=== PATIENT | female | born 1970 | race African-American/Black ===

== ENCOUNTER 2017-03-04 06:50 | Emergency (ER) | payer OTHER ==
[2017-03-04 07:14] VITALS: BMI 26.4
[2017-03-04] MEDS ORDERED: SODIUM CHLORIDE 1,000 ML IV ONE (07:59)
[2017-03-04] MEDS ORDERED: morphine CARPU-JECT 4 MG/1 ML DISP.SYRIN IVPUSH ONE (07:59)
[2017-03-04] MEDS ORDERED: ONDANSETRON 4 MG/2 ML VIAL IVPB ONE (07:59)
[2017-03-04] MEDS ORDERED: morphine CARPU-JECT 4 MG/1 ML DISP.SYRIN ONE (08:07)
[2017-03-04] MEDS ORDERED: ONDANSETRON 4 MG/2 ML VIAL ONE (08:08)
--- NOTE | 2017-03-04 08:09 | PDOC ---
History of Present Illness - General History Source: Patient Exam Limitations: No Limitations - History of Present Illness Initial Comments: 03/04/17 08:09 The patient is a 46-year-old woman, with a significant past medical history of gastroesophageal reflux disease who presents to the emergency department via walk-in for further evaluation of abdominal pain since 01:30 AM this morning. No fall, trauma, strenuous activity. Her last meal was at approximately 20:30 last night. She reports experiencing sharp right upper quadrant pain that woke her up from her sleep. She states that her pain has been constant since onset and within the past few hours, she notes that her pain has wrapped around her right flank. She states that her pain is exacerbated when taking deep breathes. She reports associated symptoms of nausea and vomiting (x1; non-bloody). She does not provide any alleviating factors. She also notes that she has experienced urinary frequency over the past day with dark appearing urine. No dysuria. No fever, chills, cough, shortness of breath, chest pain, headaches, leg pain/swelling. Allergies: None Known Past Surgical History: Caesarian Sections Social History: Occasional tobacco smoker. Occasional ETOH use. No recreational drug use. Primary Care Physician: N/A recently moved from [place], [place] (in transition of finding a new PCP). <Lulu Sam - Last Filed: 03/04/17 11:54> <Eligio Meredith - Last Filed: 03/04/17 12:35> - General Chief Complaint: Pain Stated Complaint: DIFFICULTY BREATHING, ABD PAIN Time Seen by Provider: 03/04/17 07:41 Past History <Lulu Sam - Last Filed: 03/04/17 11:54> - Psycho/Social/Smoking Cessation Hx Suicidal Ideation: No Smoking History: Never smoked Information on smoking cessation initiated: No <Eligio Meredith - Last Filed: 03/04/17 12:35> - Past Medical History Allergies/Adverse Reactions: Allergies Allergy/AdvReac Type Severity Reaction Status Date / Time No Known Allergies Allergy Verified 03/04/17 07:14 Home Medications: Ambulatory Orders Sulfamethoxazole/Trimethoprim [Bactrim Ds -] 1 tab PO BID #14 tablet 03/04/17 Review of Systems - Review of Systems Constitutional: No: Chills, Fever Respiratory: No: Cough, Shortness of Breath ABD/GI: Yes: Nausea, Vomiting. No: Constipated, Diarrhea : Yes: Frequency. No: Dysuria, Hematuria All Other Systems: Reviewed and Negative <Eligio Meredith - Last Filed: 03/04/17 12:35> *Physical Exam - Vital Signs Last Vital Signs Temp Pulse Resp BP Pulse Ox 98.3 F 94 H 18 140/85 98 03/04/17 07:11 03/04/17 07:11 03/04/17 07:11 03/04/17 07:11 03/04/17 07:38 - Physical Exam Comments: 03/04/17 08:10 GENERAL: The patient is awake, alert, and fully oriented, in no acute distress. HEAD: Normal with no signs of trauma. EYES: Pupils equal, round and reactive to light, extraocular movements intact, sclera anicteric, conjunctiva clear with no pallor. ENT: Ears normal, nares patent, oropharynx clear without exudates. Moist mucous membranes. NECK: Normal range of motion, supple without lymphadenopathy, JVD, or masses. LUNGS: Breath sounds equal, clear to auscultation bilaterally. No wheeze/ crackles. HEART: Regular rate and rhythm, normal S1 and S2 without murmur or rub. ABDOMEN: Soft. There is some right upper quadrant tenderness to palpation with guarding. +[place] sign. +Right CVA tenderness. Nondistended. BS wnl. No rebound. No palpable masses. No hepatosplenomegaly. EXTREMITIES: Normal range of motion, no edema. No clubbing or cyanosis. No cords, erythema, or tenderness. NEUROLOGICAL: Cranial nerves II through XII grossly intact. Normal speech. PSYCH: Normal mood, normal affect. SKIN: Warm, Dry, normal turgor, no rashes or lesions noted. <Lulu Sam - Last Filed: 03/04/17 11:54> - Vital Signs Last Vital Signs Temp Pulse Resp BP Pulse Ox 98.3 F 94 H 18 140/85 98 03/04/17 07:11 03/04/17 07:11 03/04/17 07:11 03/04/17 07:11 03/04/17 07:38 <Eligio Meredith - Last Filed: 03/04/17 12:35> Heart Score/ECG Review #1 ECG reviewed & interpreted by me at: 08:19 General ECG Interpretation: Sinus Rhythm, Normal Rate (72), Normal Intervals ( qtc 473), No acute ischemic changes (T wave flattening V3-V5, no ST changes) <Eligio Meredith - Last Filed: 03/04/17 12:35> ED Treatment Course - LABORATORY CBC & Chemistry Diagram: 03/04/17 07:59 03/04/17 07:59 - RADIOLOGY Radiograph Interpretation: 03/04/17 10:13 EXAM: US/ABDOMEN US -LIMITED IMPRESSION: The liver measures 18.1 cm in craniocaudal length with a slightly coarse echotexture. The gallbladder is adequately distended without intraluminal stones or thickening of its wall. No intra or extrahepatic bile duct dilatation is seen. The right and left kidney measured 10 and 10.2 cm , respectively. Small right renal upper pole cyst measuring 7 x 6 mm with a small upper pole nonobstructing stone measuring 5 mm. There are also a couple of nonobstructing left renal stones with the largest measuring 10 mm. The spleen measures 9.7 cm in sagittal length with homogeneous echotexture. Visualized portion of the pancreas appears unremarkable. There is a trace of free fluid in Rosen's pouch. Visualized portion of the proximal abdominal aorta and inferior vena cava are patent. Normal flow in the main portal vein. EXAM: CT/ABDOMEN PELVIS CT W/O CONTR IMPRESSION: Comparison: Ultrasound earlier today. Contiguous transaxial images were obtained from the diaphragmatic domes and pubic symphysis without the administration of oral and IV contrast as a Stone study. Lung bases: Negative. Bone: Negative. Liver: Negative. Gallbladder: Negative. Biliary tree: Negative. Spleen: Negative. Pancreas: Negative. Adrenals: Negative. Kidneys: Left kidney shows a small stone in the lower pole and a developing staghorn calculus in the mid to upper pole. The largest component of the staghorn calculus measures 20 mm in AP dimension x 9 mm in width. The right kidney shows no stones. No obvious hydronephrosis is seen. Mild proximal right periureteral stranding which could be related to inflammatory disease or previous stone disease. I do not see a calcified stone at this time. Pelvis: Negative. Small calcifications in the left pelvis could represent phleboliths and/or uterine calcification. No calcifications in the right hemipelvis are seen. Small right adnexal cyst. The bladder is incompletely distended and compressed by the uterus but no stones are seen. Bowel: Negative. Other: There is a small hiatal hernia. <SamLulu - Last Filed: 03/04/17 11:54> - LABORATORY CBC & Chemistry Diagram: 03/04/17 07:59 03/04/17 07:59 - RADIOLOGY Radiology Studies Ordered: Category Date Time Status GALLBLADDER US [US] Stat Ultrasound 03/04/17 08:03 Ordered <Eligio Meredith - Last Filed: 03/04/17 12:35> Medical Decision Making - Medical Decision Making 03/04/17 08:05 A portion of this note was documented by scribe services under my direction. I have reviewed the details of the note, within reason, and agree with the documentation with the following case summary and management plan written by me. 46-year-old female with no significant past medical history presents with right upper quadrant pain associated with nausea/vomiting since 1:30 AM. Patient was in her usual state of normal health, last meal was around 8 PM last night, was awoken from sleep at 1:30 with sharp right upper quadrant pain radiating around to her right back, persistent. No fevers or chills, nonbloody emesis, no history of recurrent postprandial pain. Does have GERD, but this is different. Some urinary frequency but no gross hematuria. Only surgical history was C-sections. Afebrile. Tender with guarding in the right upper quadrant, also has right CVA tenderness 46-year-old female with acute onset right upper quadrant pain with nausea/ vomiting, peritoneal findings at this time in the right upper quadrant. Presentation seems most consistent with biliary colic, possibly renal colic. Low suspicion for cardiopulmonary etiology. labs, ua, urine preg ekg RUQ sono pain and nausea control reassess 03/04/17 09:28 White count 11.1 with normal differential, hemoglobin 9.9 without prior for comparison. Chemistries are within normal limits, including LFTs and lipase. Urinalysis notable for elevated red blood cells at 72, 1+ leuk esterase. Labs seem more consistent with renal colic, will check noncontrast CT for size and location given new onset. 03/04/17 12:28 CTAP shows renal stones but no evidence of ureteral stone or obstruction. Slight stranding around the right kidney, question recently passed stone versus infection given the urinalysis. Patient is completely comfortable now, her exam is normal. We'll treat empirically for UTI, question in the setting of recently passed stone but without any evidence of obstruction. Urine culture sent, will give dose of ceftriaxone intravenously in the ED, then discharge on Bactrim with urology follow-up. Understands return criteria. <Eligio Meredith - Last Filed: 03/04/17 12:35> *DC/Admit/Observation/Transfer - Attestations Scribe Attestion: 03/04/17 08:11 Documentation prepared by Lulu Sam, acting as medical secretary teacher for Eligio Meredith MD. <Lulu Sam - Last Filed: 03/04/17 11:54> <Eligio Meredith - Last Filed: 03/04/17 12:35> Diagnosis at time of Disposition: Right upper quadrant abdominal pain, Kidney stone - Discharge Dispostion Disposition: HOME Condition at time of disposition: Improved - Prescriptions Prescriptions: Sulfamethoxazole/Trimethoprim [Bactrim Ds -] 1 tab PO BID #14 tablet - Referrals Referrals: Geovanny Nelson MD [Staff Physician] - Leland Powers MD [Staff Physician] - - Patient Instructions Printed Discharge Instructions: DI for Urinary Tract Infection (UTI), DI for Kidney Stones Additional Instructions: Activity as tolerated. Stay hydrated. Tylenol 1000 mg every 8 hours and/or ibuprofen 600 mg every 8 hours as needed for pain. As discussed, blood tests, a urine test, an ultrasound, and a CAT scan of your abdomen and pelvis showed no current kidney stones, but there are stones in the kidneys. Your gallbladder is normal. I suspect you either passed a stone or have a urine infection. Take Bactrim as prescribed for 7 days. The urine culture results should be available in 3-4 days. Continue your medications as previously prescribed by your physician. You should follow up with a primary doctor and a urologist as soon as possible regarding today's emergency department visit. Consider calling Dr. Powers for an appointment with a primary physician, and Dr. Nelson for an appointment with a urologist. Return to the emergency department for any new or concerning symptoms, particularly persistent or worsening pain, fevers or chills, difficulty urinating, vomiting.
[2017-03-04 08:37] LABS: BASOPHIL 0.3 % (0-2.0); EOSINOPHIL 0.2 % (0-4.5); MCH 24.7 pg (25.7-33.7); MCHC 31.3 g/dl (32.0-36.0); MEAN CELL VOLUME 78.9 fl (80-96); NEUTROPHILS 82.2 % (42.8-82.8); PLATELET COUNT 276 K/MM3 (134-434); RDW 17.3 % (11.6-15.6); WHITE BLOOD COUNT 11.1 K/mm3 (4.0-10.0)
[2017-03-04] MEDS ORDERED: HYDROmorphone HCL CARPU-JECT 1 MG/1 ML DISP.SYRIN IVPUSH ONE (08:47)
[2017-03-04] MEDS ORDERED: HYDROmorphone HCL CARPU-JECT 1 MG/1 ML DISP.SYRIN ONE (08:48)
[2017-03-04 08:54] LABS: URINE APPEARANCE CLEAR; URINE BILIRUBIN NEGATIVE (NEGATIVE); URINE COLOR LTYELLOW; URINE GLUCOSE (UA) NEGATIVE (NEGATIVE); URINE KETONE NEGATIVE (NEGATIVE); URINE NITRITE NEGATIVE (NEGATIVE); URINE UROBILINOGEN NEGATIVE E.U./dl (0.2-1.0)
[2017-03-04 08:55] LABS: URINE BLOOD 2+ (NEGATIVE); URINE LEUK ESTERASE 1+ (NEGATIVE); URINE PROTEIN 1+ (NEGATIVE)
[2017-03-04 09:00] LABS: ALBUMIN 3.1 g/dl (3.4-5.0); ANION GAP 7 (8-16); BILIRUBIN,TOTAL 0.2 mg/dL (0.2-1.0); CALCIUM 7.9 mg/dL (8.5-10.1); CO2 26 mmol/L (21-32); CREATININE 0.9 mg/dL (0.55-1.02); GLUCOSE,RANDOM 111 mg/dL (74-106); SGOT/AST 16 U/L (15-37); SGPT/ALT 21 U/L (12-78)
[2017-03-04 09:01] LABS: ALK PHOS 89 U/L (45-117)
[2017-03-04 09:02] LABS: URINE HYALINE CAST 3 /lpf; URINE MUCUS RARE; URINE RBC 72 /hpf (0-3); URINE WBC 14 /hpf (3-5)
[2017-03-04 09:06] LABS: BILIRUBIN,DIRECT < 0.1 mg/dL (0.0-0.2)
[2017-03-04] MEDS ORDERED: CEFTRIAXONE 1 GM in DEXTROSE 5%-WATER - 50 ML IVPB ONE (11:54)
[2017-03-04] MEDS ORDERED: CEFTRIAXONE 50 ML ONE (11:59)
[2017-03-04 13:11] VITALS: BP 124/70; PULSE 78; TEMP 98
--- NOTE | 2017-03-04 15:07 | EKG ---
Test Reason : Blood Pressure : / mmHG Vent. Rate : 072 BPM Atrial Rate : 072 BPM P-R Int : 150 ms QRS Dur : 088 ms QT Int : 432 ms P-R-T Axes : 067 021 002 degrees QTc Int : 473 ms NORMAL SINUS RHYTHM NONSPECIFIC T WAVE ABNORMALITY PROLONGED QT ABNORMAL ECG NO PREVIOUS ECGS AVAILABLE Confirmed by RADHA GLEASON MD ([id number]) on 03/04/2017 3:06:40 PM Referred By: Confirmed By:RADHA GLEASON MD
== END 2017-03-04 13:18 | disposition home or self-care (01) ==
LOC: JER 06:50
PROC: 3E03329 Introduction of Other Anti-infective into Peripheral Vein, Percutaneous Approach (ICD-10-PCS; principal; 2017-03-04)
PROC: 3E033NZ Introduction of Analgesics, Hypnotics, Sedatives into Peripheral Vein, Percutaneous Approach (ICD-10-PCS; 2017-03-04)
PROC: 3E033NZ Introduction of Analgesics, Hypnotics, Sedatives into Peripheral Vein, Percutaneous Approach (ICD-10-PCS; 2017-03-04)
PROC: 3E033GC Introduction of Other Therapeutic Substance into Peripheral Vein, Percutaneous Approach (ICD-10-PCS; 2017-03-04)
DX: N20.0 Calculus of kidney (principal); N39.0 Urinary tract infection, site not specified
CPT/HCPCS: 36415; 74176-TC; 76705-TC; 80053; 81003; 81015; 82248; 83690; 84703; 85025; 86850; 86900; 86901; 87086; 93005; 93010; 99283-25

== ENCOUNTER 2017-05-31 07:41 | Day surgery (SDC) | payer OTHER ==
[2017-05-28 14:41] VITALS: BMI 26.1
--- NOTE | 2017-05-31 09:09 | HP ---
History & Physical Update - History History: No Change - Physical Physical: No Change - Assessment Assessment: No Change - Plan Plan: No Change
--- NOTE | 2017-05-31 09:11 | OP ---
Operative Note - Note: Operative Date: 05/31/17 Pre-Operative Diagnosis: L renal calculus Operation: L ureteropyeloscopic laser lithotripsy and L JJ stent insertion Findings: L renal calculus Post-Operative Diagnosis: Same as Pre-op Surgeon: Geovanny Nelson Anesthesiologist/LPN PER DIEM: Lubna Reeves Anesthesia: General Drains & Tubes with Location: 6 fr 24 cm L JJ stent Operative Report Dictated: Yes
[2017-05-31] MEDS ORDERED: DEXAMETHASONE SOD PHOSPHATE 4 MG/1 ML VIAL ONE (09:28)
[2017-05-31] MEDS ORDERED: PROPOFOL 20 ML ONE (09:29)
[2017-05-31] MEDS ORDERED: MIDAZOLAM HCL 2 MG/2 ML SINGLE DOSE VIAL ONE (09:29)
[2017-05-31] MEDS ORDERED: ceFAZolin SODIUM 1 GM VIAL IVPB ONE (09:46)
[2017-05-31] MEDS ORDERED: oxyCODONE HCL 5 MG TABLET PO PRN (10:59)
[2017-05-31] MEDS ORDERED: IBUPROFEN 800 MG/8 ML IJ IVPB PRN (10:59)
[2017-05-31] MEDS ORDERED: ONDANSETRON 4 MG/2 ML VIAL IVPUSH PRN (10:59)
[2017-05-31] MEDS ORDERED: LACTATED RINGERS SOLUTION 1,000 ML IV SCH (11:00)
[2017-05-31] MEDS ORDERED: IBUPROFEN 800 MG/8 ML IJ IVPB ONE (11:25)
[2017-05-31 12:24] VITALS: TEMP 97.7
[2017-05-31 13:14] VITALS: BP 116/76; PULSE 82
--- NOTE | 2017-06-03 10:14 | OP ---
DATE OF OPERATION: 05/31/2017 PREOPERATIVE DIAGNOSIS: Left renal calculus. POSTOPERATIVE DIAGNOSIS: left renal calculus. PROCEDURE: Cystoscopy, left ureteropyeloscopic laser lithotripsy, and left double-J stent insertion. SURGEON: Geovanny Nelson MD BID ANALYST: None. ANESTHESIA: General via laryngeal mask. ANESTHESIOLOGIST: Lubna Reeves MD SPECIMENS: None. CULTURES: None. DRAINS: A 6-Comoran 24-cm left double-J stent. ESTIMATED BLOOD LOSS: None. COMPLICATION: None. DESCRIPTION OF PROCEDURE: The patient was brought into the operating room, placed on the operating table in supine position. After administration of general anesthesia, intravenous antibiotics were administered, and the perineum and vagina were prepped and draped in usual sterile manner. The 22-Comoran cystoscope was inserted into the bladder with the obturator in place. The obturator was removed, and urine was evacuated. The 30-degree telescope was inserted, and cystoscopy was performed. Both ureteral orifices were in their usual location with clear efflux bilaterally. There were no foreign bodies, tumors, stones, or inflammation. The left ureteral orifice was cannulated with a 0.038 guidewire which was advanced to the level of the left renal pelvis under direct visual and fluoroscopic guidance. Now, cystoscope was removed. The dual-lumen catheter was inserted, and a retrograde pyelogram was done which demonstrated a partial staghorn of the upper pole calyces, measuring approximately 2 cm which was radiopaque. The second guidewire was placed. The dual-lumen catheter was removed, and the Navigator ureteral access sheath was placed to the level of the ureteropelvic junction under fluoroscopic guidance. The inner sheath and the second wire were removed, and now, the flexible ureteroscope was inserted through the ureteral access sheath to the level of the renal pelvis. Now, the upper pole stone was visualized. Using the 200-micron laser fiber, laser lithotripsy was done, and almost the entire stone was fragmented into dust. A small, approximately 7-mm fragment was remaining in the middle calyx which could not be reached and will be treated with lithotripsy at a later date. Now, retrograde pyelogram was done, demonstrated small residual stone fragment and small amount of extravasation of contrast. The 6-Comoran 24-cm left double-J stent was now inserted over the guidewire under fluoroscopic guidance, leaving 1 coil in the renal pelvis and 1 coil in the bladder. The stent was secured to the thigh with its suture and a Tegaderm. She tolerated the procedure well, was awoken from anesthesia in the operating room, transferred to the recovery room in stable condition. PLAN: Followup in the office next week for stent removal, followed by extracorporeal shock wave lithotripsy of the remaining fragment in the left kidney. Piter [id number]
== END 2017-05-31 13:17 | disposition home or self-care (01) ==
LOC: JASU-SURG 07:41
PROVIDERS: ATTEND Urology
PROC: 0TF78ZZ Fragmentation in Left Ureter, Via Natural or Artificial Opening Endoscopic (ICD-10-PCS; principal; 2017-05-31 09:00)
PROC: 0T778DZ Dilation of Left Ureter with Intraluminal Device, Via Natural or Artificial Opening Endoscopic (ICD-10-PCS; 2017-05-31 09:00)
DX: N20.0 Calculus of kidney (principal)
CPT/HCPCS: 76000-TC; 84703; 94760

== ENCOUNTER 2017-06-05 20:08 | Inpatient (IN) | payer OTHER ==
[2017-06-05 20:17] VITALS: BMI 26.7
--- NOTE | 2017-06-05 20:41 | PDOC ---
History of Present Illness - History of Present Illness Initial Comments: 06/05/17 22:45 Patient is a 47 year old female with significant medical hx of nephrolithiasis who is presenting to the ED with fevers, left flank pain and suprapubic pain for two days. The patient underwent lithotripsy with ureteral stent placement on 05/31/[address] Nelson for kidney stones. Since her procedure the patient has experienced fevers and pain to her left side, left flank, and suprapubic region. Patient also endorses some nausea but denies any vomiting or diarrhea. Denies hematuria. Surgeon: Geovanny Nelson MD <Tasha Goddard - Last Filed: 06/06/17 00:48> <Elmo Villarreal - Last Filed: 06/06/17 01:15> - General Chief Complaint: SIRS, Suspected/Possible Stated Complaint: FEVER Time Seen by Provider: 06/05/17 20:28 Past History <Tasha Goddard - Last Filed: 06/06/17 00:48> - Past Medical History Anemia: Yes Disorders: Yes (STONES) HTN: Yes Thyroid Disease: No - Psycho/Social/Smoking Cessation Hx Suicidal Ideation: No Smoking History: Current every day smoker Have you smoked in the past 12 months: Yes Number of Cigarettes Smoked Daily: 1 Information on smoking cessation initiated: No 'Breaking Loose' booklet given: 05/31/17 Hx Alcohol Use: Yes (SOCIALLY) Drug/Substance Use Hx: No Substance Use Type: Alcohol <Elmo Villarreal - Last Filed: 06/06/17 01:15> - Past Medical History Allergies/Adverse Reactions: Allergies Allergy/AdvReac Type Severity Reaction Status Date / Time No Known Allergies Allergy Verified 06/05/17 20:14 Home Medications: Ambulatory Orders Acetaminophen [Tylenol] 650 mg PO PRN PRN 05/28/17 Ferrous Sulfate [Feosol] 325 mg PO HS 05/28/17 Lisinopril [Prinivil] 20 mg PO HS 05/28/17 Wright-3 Fatty Acids [Fish Oil] 300 mg PO DAILY 05/28/17 Oxycodone HCl/Acetaminophen [Percocet 5-325 mg Tablet] 1 - 2 tab PO Q4H PRN #60 tablet MDD 6 05/31/17 Sulfamethoxazole/Trimethoprim [Bactrim Ds Tablet] 1 each PO BID #14 tablet 05/31 Review of Systems - Review of Systems Comments:: 06/05/17 22:46 CONSTITUTIONAL: Fever. No chills, no fatigue EYES: No visual changes ENT: No ear pain, no sore throat CARDIOVASCULAR: No chest pain, no palpitations RESPIRATORY: No cough, no SOB GI: Left side pain, nausea. No vomiting, no constipation, no diarrhea GENITOURINARY: No dysuria, no frequency, no hematuria MUSKULOSKELETAL: Left flank pain. No joint pain, no myalgias SKIN: No rash NEURO: No headache <Tasha Goddard - Last Filed: 06/06/17 00:48> *Physical Exam - Vital Signs Last Vital Signs Temp Pulse Resp BP Pulse Ox 99.1 F 109 H 18 140/83 95 06/05/17 20:15 06/05/17 20:15 06/05/17 20:15 06/05/17 20:15 06/05/17 20:15 - Physical Exam Comments: 06/05/17 22:48 CONSTITUTIONAL: Well-appearing; well-nourished; in no apparent distress HEAD: Normocephalic; atraumatic EYES: PERRL; EOM intact ENMT: External appears normal; normal oropharynx NECK: Supple; non-tender; no cervical lymphadenopathy CARD: Normal S1, S2; no murmurs, rubs, or gallops RESP: Normal chest excursion with respiration; breath sounds clear and equal bilaterally; no wheezes, rhonchi, or rales ABD: Soft, non-distended; mild to moderate LLQ and LUQ tenderness; no palpable organomegaly, no palpable hernias BACK: Significant left CVA tenderness. EXT: Normal ROM in all four extremities; non-tender to palpation; distal pulses intact SKIN: Warm, dry, no rash NEURO: No focal neurological deficiencies. <Tasha Goddard - Last Filed: 06/06/17 00:48> - Vital Signs Last Vital Signs Temp Pulse Resp BP Pulse Ox 99.1 F 109 H 18 140/83 95 06/05/17 20:15 06/05/17 20:15 06/05/17 20:15 06/05/17 20:15 06/05/17 20:15 <Elmo Villarreal - Last Filed: 06/06/17 01:15> ED Treatment Course - LABORATORY CBC & Chemistry Diagram: 06/05/17 20:58 06/05/17 20:58 - ADDITIONAL ORDERS Additional order review: Laboratory Results 06/05/17 06/05/17 06/05/17 21:30 20:58 20:58 INR 1.04 Sodium 139 Potassium 3.7 Chloride 104 Carbon Dioxide 27 Anion Gap 8 BUN 10 Creatinine 1.0 Creat Clearance w eGFR 59.69 Random Glucose 101 Calcium 9.0 Total Bilirubin 0.2 AST 14 L ALT 19 Alkaline Phosphatase 107 D Total Protein 7.1 Albumin 2.8 L Urine Color Yellow Urine Appearance Slcloudy Urine pH 6.0 Urine Protein 2+ H Urine Glucose (UA) Negative Urine Ketones Negative Urine Blood 2+ H Urine Nitrite Negative Urine Bilirubin Negative Urine Urobilinogen 4.0 e.u/dl H Ur Leukocyte Esterase 3+ H D Urine RBC 850 Urine WBC 33 Ur Epithelial Cells Rare Urine Mucus Rare Urine HCG, Qual Negative 06/05/17 20:58 RBC 3.62 MCV 81.9 MCHC 31.9 L RDW 19.0 H MPV 7.8 Neutrophils % 71.1 Lymphocytes % 17.0 D Monocytes % 10.4 H D Eosinophils % 0.4 D Basophils % 1.1 D - RADIOLOGY Radiograph Interpretation: 06/06/17 00:48 Assistant Sales Director: (manolo) Report Date: 06/05/2017 23:39:00 Report Status: Preliminary Begin of Report Content Referring Physician: Elmo Villarreal Patient Name: Nat Balbuena THIS IS A PRELIMINARY REPORT FROM [facility] EXAM: Ultrasound kidneys IMAGES: 32 INDICATION: Left kidney pain. Rule out hydronephrosis. DATE OF SERVICE: 2017-06-05 23:39:38.0 COMPARISON: none FINDINGS: The right kidney is 9.9 cm in length and appears normal. The left kidney is 11.2 cm in length and contains a 1.1 x 0.8 x 0.6 cm stone in the midpole there is no hydronephrosis. No additional stones. IMPRESSION: 1.1 cm nonobstructing left renal stone. THIS DOCUMENT HAS BEEN ELECTRONICALLY SIGNED Frank Capone MD 06/06/2017 00:25 CONRADO Dumas Please call [facility] [phone] ([phone] with questions. End of Report Content - Medications Given in the ED: ED Medications Discontinued Medications Generic Name Dose Route Start Last Admin Trade Name Freq PRN Reason Stop Dose Admin Sodium Chloride 1,000 mls @ 1,000 mls/hr 06/05/17 20:55 06/05/17 21:30 Normal Saline - IV 06/05/17 21:54 1,000 mls/hr ASDIR STA Administration Ceftriaxone Sodium 2 gm/ 100 mls @ 200 mls/hr 06/05/17 20:57 06/05/17 21:30 Dextrose IVPB 06/05/17 21:26 200 mls/hr ONCE ONE Administration Morphine Sulfate 4 mg 06/05/17 20:55 06/05/17 21:30 Morphine Injection - IVPUSH 06/05/17 20:56 4 mg ONCE ONE Administration Ondansetron HCl 8 mg 06/05/17 20:55 06/05/17 21:30 Zofran Injection IVPB 06/05/17 20:56 8 mg ONCE ONE Administration <Tasha Goddard - Last Filed: 06/06/17 00:48> - LABORATORY CBC & Chemistry Diagram: 06/05/17 20:58 06/05/17 20:58 <Elmo Villarreal - Last Filed: 06/06/17 01:15> Medical Decision Making - Medical Decision Making 06/06/17 01:11 Patient is a 47-year-old female with history of hypertension, nephrolithiasis who presents to the ER with severe left flank pain, dysuria, fevers (MAXIMUM TEMPERATURE 102), after undergoing lithotripsy despite taking Bactrim DS prescribed by urologist. In the ER, patient is awake and alert, with significant left CVA tenderness to palpation; CBC reveals no evidence of significant leukocytosis or neutrophilia. CMP is within normal limit. Urinalysis reveals more than 33 WBCs per high-power field as well as 850 rbc's. Symptoms are consistent with acute pyelonephritis post lithotripsy. Blood and urine cultures been obtained. We'll administer IV ceftriaxone. Case discussed with Dr. Holm. He agrees with plan of admission for IV antibiotics. <Elmo Villarreal - Last Filed: 06/06/17 01:15> *DC/Admit/Observation/Transfer - Attestations Scribe Attestion: 06/05/17 22:50 Documentation prepared by Tasha Goddard, acting as er medical technician for Elmo Villarreal MD. <Tasha Goddard - Last Filed: 06/06/17 00:48> - Discharge Dispostion Admit: Yes - Attestations Physician Attestion: 06/05/17 21:04 The documentation was prepared by the scribe under my direct supervision. I have reviewed the documentation which correctly represents the findings, medical decision-making and critical action taken by me. <Elmo Villarreal - Last Filed: 06/06/17 01:15> Diagnosis at time of Disposition: Pyelonephritis, Kidney stone - Discharge Dispostion Condition at time of disposition: Fair - Referrals Referrals: Leland Powers MD [Primary Care Provider] -
[2017-06-05] MEDS ORDERED: ONDANSETRON 4 MG/2 ML VIAL IVPB ONE (20:55)
[2017-06-05] MEDS ORDERED: SODIUM CHLORIDE 1,000 ML IV STA (20:55)
[2017-06-05] MEDS ORDERED: morphine CARPU-JECT 4 MG/1 ML DISP.SYRIN IVPUSH ONE (20:55)
[2017-06-05] MEDS ORDERED: CEFTRIAXONE 2 GM in DEXTROSE 5%-WATER - 100 ML IVPB ONE (20:57)
[2017-06-05] MEDS ORDERED: ONDANSETRON 4 MG/2 ML VIAL ONE (21:10)
[2017-06-05] MEDS ORDERED: morphine CARPU-JECT 4 MG/1 ML DISP.SYRIN ONE (21:10)
[2017-06-05 21:14] LABS: BASOPHIL 1.1 % (0-2.0); EOSINOPHIL 0.4 % (0-4.5); MCH 26.1 pg (25.7-33.7); MCHC 31.9 g/dl (32.0-36.0); MEAN CELL VOLUME 81.9 fl (80-96); MEAN PLT VOLUME 7.8 fl (7.5-11.1); NEUTROPHILS 71.1 % (42.8-82.8); PLATELET COUNT 323 K/MM3 (134-434)
[2017-06-05] MEDS ORDERED: CEFTRIAXONE 100 ML IVPB ONE (21:23)
[2017-06-05 21:31] LABS: INR 1.04 (0.82-1.09); PROTHROMBIN TIME (PATIENT) 11.4 SEC (9.98-11.88)
[2017-06-05 21:38] LABS: URINE APPEARANCE SLCLOUDY; URINE BILIRUBIN NEGATIVE (NEGATIVE); URINE BLOOD 2+ (NEGATIVE); URINE COLOR YELLOW; URINE GLUCOSE (UA) NEGATIVE (NEGATIVE); URINE KETONE NEGATIVE (NEGATIVE); URINE NITRITE NEGATIVE (NEGATIVE); URINE UROBILINOGEN 4.0 E.U/dl mg/dL (0.2-1.0)
[2017-06-05 21:39] LABS: ALBUMIN 2.8 g/dl (3.4-5.0); ANION GAP 8 (8-16); BILIRUBIN,TOTAL 0.2 mg/dL (0.2-1.0); CO2 27 mmol/L (21-32); GLUCOSE,RANDOM 101 mg/dL (74-106); SGOT/AST 14 U/L (15-37); SGPT/ALT 19 U/L (12-78); TOT PROT 7.1 g/dl (6.4-8.2)
[2017-06-05 21:39] LABS: URINE LEUK ESTERASE 3+ (NEGATIVE); URINE PROTEIN 2+ (NEGATIVE)
[2017-06-05 21:40] LABS: ALK PHOS 107 U/L (45-117)
[2017-06-05 21:50] LABS: URINE MUCUS RARE; URINE RBC 850 /hpf (0-3); URINE WBC 33 /hpf (3-5)
[2017-06-05] MEDS ORDERED: SODIUM CHLORIDE 500 ML IV STA (23:05)
--- NOTE | 2017-06-06 01:30 | HP ---
HISTORY OF PRESENT ILLNESS: Patient is a 47 year old female with a PMHx of nephrolithiasis and HTN who presented for severe left flank, LLQ, LUQ and suprapubic pain associated with fevers, chills, nausea and nonbloody vomiting x1 for the last 5 days that progressively worsened. Patient is S/P lithotripsy with stent placement on and reports since then she experienced fevers of Tmax 102.0 F, which prompted this hospital visit. Patient is currently on Bactrim and Tylenol PRN. Patient otherwise denies chest pain, palpitations, shortness of breath, hematuria, frequency. REVIEW OF SYSTEMS (+) Fevers, Abdominal pain, nausea (-) Hematuria, frequency PHYSICAL EXAMINATION Vital Signs - 24 hr 06/05/17 20:15 Temperature 99.1 F Pulse Rate 109 H Respiratory 18 Rate Blood Pressure 140/83 O2 Sat by Pulse 95 Oximetry (%) GENERAL: Awake, alert, and fully oriented, in no acute distress. LUNGS: Breath sounds equal, clear to auscultation bilaterally. No wheezes, and no crackles. No accessory muscle use. HEART: Regular rate and rhythm, normal S1 and S2 without murmur, rub or gallop. ABDOMEN: Soft, moderate tenderness upon palpation of left flank, LLQ, LUQ and suprapubic region, distended. (+) Left CVA tenderness. Normoactive bowel sounds , no guarding, no rebound, no masses. LOWER EXTREMITIES: No peripheral edema. Laboratory Results - last 24 hr 06/05/17 06/05/17 06/05/17 20:58 20:58 20:58 WBC 11.0 H RBC 3.62 Hgb 9.5 L Hct 29.7 L MCV 81.9 MCH 26.1 MCHC 31.9 L RDW 19.0 H Plt Count 323 MPV 7.8 Neutrophils % 71.1 Lymphocytes % 17.0 D Monocytes % 10.4 H D Eosinophils % 0.4 D Basophils % 1.1 D INR 1.04 Sodium 139 Potassium 3.7 Chloride 104 Carbon Dioxide 27 Anion Gap 8 BUN 10 Creatinine 1.0 Creat Clearance w eGFR 59.69 Random Glucose 101 Calcium 9.0 Total Bilirubin 0.2 AST 14 L ALT 19 Alkaline Phosphatase 107 D Total Protein 7.1 Albumin 2.8 L Urine Color Urine Appearance Urine pH Ur Specific [place] Urine Protein Urine Glucose (UA) Urine Ketones Urine Blood Urine Nitrite Urine Bilirubin Urine Urobilinogen Ur Leukocyte Esterase Urine RBC Urine WBC Ur Epithelial Cells Urine Mucus Urine HCG, Qual 06/05/17 21:30 WBC RBC Hgb Hct MCV MCH MCHC RDW Plt Count MPV Neutrophils % Lymphocytes % Monocytes % Eosinophils % Basophils % INR Sodium Potassium Chloride Carbon Dioxide Anion Gap BUN Creatinine Creat Clearance w eGFR Random Glucose Calcium Total Bilirubin AST ALT Alkaline Phosphatase Total Protein Albumin Urine Color Yellow Urine Appearance Slcloudy Urine pH 6.0 Ur Specific [place] >= 1.030 H Urine Protein 2+ H Urine Glucose (UA) Negative Urine Ketones Negative Urine Blood 2+ H Urine Nitrite Negative Urine Bilirubin Negative Urine Urobilinogen 4.0 e.u/dl H Ur Leukocyte Esterase 3+ H D Urine RBC 850 Urine WBC 33 Ur Epithelial Cells Rare Urine Mucus Rare Urine HCG, Qual Negative IMAGES Kidney U/S (06/05/17): No hydronephrosis. 1.1cm nonobstructing left renal stone. ASSESSMENT/PLAN: Patient is a 47 year old female with a PMHx of HTN, nephrolithiasis s/p lithotripsy with stent placement (05/31/17) who presented with worsening left flank pain with fevers and nausea despite taking Bactrim. Patient was found to have positive U/A and admitted for further monitoring and management. Left Flank Pain likely Secondary to Pyelonephritis vs. UTI -S/P lithotripsy w/ stent placement (05/31/17) -U/A positive 3+ LE, WBC's 33, RBC's 850 with severe left CVA tenderness -Previous urine cultures contaminated -Continue Ceftriaxone 2gm IVPB daily -Continue IV fluids for hydration -Continue pain control with Morphine PRN -Continue Zofran PRN for nausea and vomiting -Tylenol PRN for fever -Urine and blood cultures pending -NPO -Urology consult placed HTN- Continue current home medication with Lisinopril. Continue to monitor BP Iron Def. Anemia- Continue home medication Ferrous Sulfate F/E/N- Continue IV Fluids. Electrolytes wnl. NPO for possible procedure Prophylaxis- Low Risk. EAM. Heparin SQ for DVT Disposition- Full code. Admit to med/surg and wait for Urology consult. Visit type - Emergency Visit Emergency Visit: Yes ED Registration Date: 06/06/17 Care time: The patient presented to the Emergency Department on the above date and was hospitalized for further evaluation of their emergent condition. - New Patient This patient is new to me today: Yes Date on this admission: 06/06/17 - Critical Care Critical Care patient: No
[2017-06-06] MEDS ORDERED: morphine CARPU-JECT 4 MG/1 ML DISP.SYRIN IVPUSH ONE (01:37)
[2017-06-06] MEDS ORDERED: morphine CARPU-JECT 4 MG/1 ML DISP.SYRIN ONE (01:51)
[2017-06-06] MEDS ORDERED: ONDANSETRON 4 MG/2 ML VIAL ONE (01:59)
[2017-06-06] MEDS ORDERED: ONDANSETRON 4 MG/2 ML VIAL IVPUSH ONE (02:05)
[2017-06-06] MEDS ORDERED: ONDANSETRON 4 MG/2 ML VIAL IVPB ONE ×2 (02:07→02:31)
--- NOTE | 2017-06-06 02:29 | HP ---
CHIEF COMPLAINT: LLQ/ left flank pain PCP: Dr. Powers Urologist: Dr. Geovanny Nelson HISTORY OF PRESENT ILLNESS: 47yo woman with well-controlled HTN and nephrolithiasis s/p L lithotripsy and stent placement 5 days ago on Bactrim (05/31) who presents with fever/chills and LLQ/ left flank pain for the past 5days. She describes the pain as burning with 10/10 severity that radiates to her back. She has had fevers with a Tmax of 101.5 for which she has been taking Acetominophen. She has had decreased appetite and ongoing nausea with 1x vomit (non-bilious, nonbloody). She endorses dysuria, but denies hematuria except on POD1. No BM's since the procedure, but she has been passing gas. No SOB, chest pain, pressure, or tightness. No REN, changes in vision, or myalgia. ER course was notable for: (1) Afebrile, tachycardia (2) Received one dose Ceftriaxone 2gm IV (3) UA revealed hematuria, pyuria, and 3+ LE Recent Travel: no PAST MEDICAL HISTORY: #Nephrolithiasis: spontaneously passed stone in February 2017, #HTN - on lisinopril #GERD PAST SURGICAL HISTORY: #L L ureteropyeloscopic laser lithotripsy and L JJ stent insertion #C-sections x3 (30y ago) #Knee surgery (32y ago) Social History: Smoking: denies Alcohol: occasional (3 drinks/mo) Drugs: denies Family History: +HTN, DM, No family h/o nephrolithiasis, Allergies: NKDA HOME MEDICATIONS: Home Medications Medication Instructions Recorded Acetaminophen [Tylenol] 650 mg PO PRN PRN 05/28/17 Ferrous Sulfate [Feosol] 325 mg PO HS 05/28/17 Lisinopril [Prinivil] 20 mg PO HS 05/28/17 [place]-3 Fatty Acids [Fish Oil] 300 mg PO DAILY 05/28/17 Oxycodone HCl/Acetaminophen 1 - 2 tab PO Q4H PRN #60 tablet 05/31/17 [Percocet 5-325 mg Tablet] MDD 6 Sulfamethoxazole/Trimethoprim 1 each PO BID #14 tablet 05/31/17 [Bactrim Ds Tablet] REVIEW OF SYSTEMS CONSTITUTIONAL: +fever, chills, loss of appetite Absent: diaphoresis, generalized weakness, malaise, weight change HEENT: Absent: rhinorrhea, nasal congestion, throat pain, throat swelling, difficulty swallowing, mouth swelling, ear pain, eye pain, visual changes CARDIOVASCULAR: Absent: chest pain, syncope, palpitations, irregular heart rate , lightheadedness, peripheral edema RESPIRATORY: Absent: cough, shortness of breath, dyspnea with exertion, orthopnea, wheezing, stridor, hemoptysis GASTROINTESTINAL: +abdominal pain, nausea, vomiting, constipation Absent:diarrhea, melena, hematochezia GENITOURINARY: Absent: dysuria, frequency, urgency, hesitancy, hematuria, flank pain, genital pain MUSCULOSKELETAL: Absent: myalgia, arthralgia, joint swelling, back pain, neck pain SKIN: Absent: rash, itching, pallor HEMATOLOGIC/IMMUNOLOGIC: Absent: easy bleeding, easy bruising, lymphadenopathy, frequent infections ENDOCRINE: Absent: unexplained weight gain, unexplained weight loss, heat intolerance, cold intolerance NEUROLOGIC: Absent: headache, focal weakness or paresthesias, dizziness, unsteady gait, seizure, mental status changes, bladder or bowel incontinence PSYCHIATRIC: Absent: anxiety, depression, suicidal or homicidal ideation, hallucinations. PHYSICAL EXAMINATION GENERAL: Awake, alert, and fully oriented, in no acute distress. HEAD: Normal with no signs of trauma. EYES: PERRLA, EOMI, sclera anicteric, conjunctiva clear EARS, NOSE, THROAT: Oropharynx clear without exudates. Moist mucous membranes. NECK: supple, no cervical LAD LUNGS: CTAB, no wheezes, and no crackles HEART: Regular rate and rhythm, normal S1 and S2 without murmur, rub or gallop. ABDOMEN: moderately distended, LLQ tenderness to palpation, normoactive bowel sounds, no hepatomegaly or splenomegaly : L CVA tenderness, suprapubic tenderness LOWER EXTREMITIES: 2+ pulses, warm, well-perfused. No peripheral edema NEUROLOGICAL: Grossly intact, but not formally tested PSYCHIATRIC: Cooperative. Good eye contact. Appropriate mood and affect. SKIN: Warm, dry, normal turgor, no rashes or lesions noted Lab Results WBC 11.0 K/mm3 (4.0-10.0) H 06/05/17 20:58 RBC 3.62 M/mm3 (3.60-5.2) 06/05/17 20:58 Hgb 9.5 GM/dL (10.7-15.3) L 06/05/17 20:58 Hct 29.7 % (32.4-45.2) L 06/05/17 20:58 MCV 81.9 fl (80-96) 06/05/17 20:58 MCHC 31.9 g/dl (32.0-36.0) L 06/05/17 20:58 RDW 19.0 % (11.6-15.6) H 06/05/17 20:58 Plt Count 323 K/MM3 (134-434) 06/05/17 20:58 Sodium 139 mmol/L (136-145) 06/05/17 20:58 Potassium 3.7 mmol/L (3.5-5.1) 06/05/17 20:58 Chloride 104 mmol/L (98-107) 06/05/17 20:58 Carbon Dioxide 27 mmol/L (21-32) 06/05/17 20:58 Anion Gap 8 (8-16) 06/05/17 20:58 BUN 10 mg/dL (7-18) 06/05/17 20:58 Creatinine 1.0 mg/dL (0.55-1.02) 06/05/17 20:58 Random Glucose 101 mg/dL (74-106) 06/05/17 20:58 Calcium 9.0 mg/dL (8.5-10.1) 06/05/17 20:58 INR 1.04 (0.82-1.09) 06/05/17 20:58 Hepatic Panel Total Bilirubin 0.2 mg/dL (0.2-1.0) 06/05/17 20:58 AST 14 U/L (15-37) L 06/05/17 20:58 ALT 19 U/L (12-78) 06/05/17 20:58 Alkaline Phosphatase 107 U/L (45-117) D 06/05/17 20:58 Albumin 2.8 g/dl (3.4-5.0) L 06/05/17 20:58 Urine Test Results Urine Color Yellow 06/05/17 21:30 Urine Appearance Slcloudy 06/05/17 21:30 Urine pH 6.0 (5.0-8.0) 06/05/17 21:30 Ur Specific [place] >= 1.030 (1.005-1.025) H 06/05/17 21:30 Urine Protein 2+ (NEGATIVE) H 06/05/17 21:30 Urine Glucose (UA) Negative (NEGATIVE) 06/05/17 21:30 Urine Ketones Negative (NEGATIVE) 06/05/17 21:30 Urine Blood 2+ (NEGATIVE) H 06/05/17 21:30 Urine Nitrite Negative (NEGATIVE) 06/05/17 21:30 Urine Bilirubin Negative (NEGATIVE) 06/05/17 21:30 Ur Leukocyte Esterase 3+ (NEGATIVE) H D 06/05/17 21:30 Urine RBC 850 /hpf (0-3) 06/05/17 21:30 Urine WBC 33 /hpf (3-5) 06/05/17 21:30 Ur Epithelial Cells Rare /hpf (FEW) 06/05/17 21:30 Urine Mucus Rare 06/05/17 21:30 IMAGING: Renal Ultrasound 06-05-2017: FINDINGS: The right kidney is 9.9 cm in length and appears normal. The left kidney is 11.2 cm in length and contains a 1.1 x 0.8 x 0.6 cm stone in the midpole there is no hydronephrosis. No additional stones. IMPRESSION: 1.1 cm nonobstructing left renal stone. ASSESSMENT/PLAN: 47yo woman with h/o HTN and nephrolithiasis who is POD5 from L lithotripsy and stent placement on Bactrim who presents fever/nausea/L flank pain that is c/w pyelonephritis vs UTI, and will be admitted for further monitoring and management. Her labs are notable for mild leukocytosis (WBC 11K), pyuria and hematuria with 3+LE. #Left flank/LLQ pain -Start Ceftriaxone 2gm IVPB q24h -U Cx pending: Refine antibiotics accordingly -Morphine 2gm IVPUSH Q4H PRN for pain management -Acetominophen 650mg PO Q4H PRN for pain/fever -Ondansetron 8mg IVPUSH q6hr for nausea -Urologist consulted (Dr. Geovanny Nelson) #HTN -Continue home Lisinopril 20mg PO HS #Anemia -Continue home ferrous sulfate 325mg PO #F/E/N -NS @ 100cc/hr -Electrolytes wnl -NPO, small sips for PO meds #DVT prophylaxis -Heparin 5000U SQ Q8H #Dispo -Admit to Med/Surg -FULL code d/w team. JERRI TINSLEY MD PGY-1 Visit type - Emergency Visit Emergency Visit: Yes ED Registration Date: 06/06/17 Care time: The patient presented to the Emergency Department on the above date and was hospitalized for further evaluation of their emergent condition. - New Patient This patient is new to me today: Yes Date on this admission: 06/06/17 - Critical Care Critical Care patient: No
[2017-06-06] MEDS ORDERED: ONDANSETRON 4 MG/2 ML VIAL IVPB PRN (03:21)
[2017-06-06] MEDS: HEPARIN NA (PORCINE) 5,000 UNITS/ML 1ML VIAL SQ SCH ×3 (03:30→18:50)
[2017-06-06] MEDS: SODIUM CHLORIDE 1,000 ML IV SCH ×2 (05:00→17:04)
[2017-06-06] MEDS ORDERED: ACETAMINOPHEN 325 MG TABLET (FP) PO PRN ×2 (05:02→05:06)
--- NOTE | 2017-06-06 06:16 | PN ---
Teaching Attending Note Name of Resident: Vivienne Martínez ATTENDING PHYSICIAN STATEMENT I saw and evaluated the patient. I reviewed the resident's note and discussed the case with the resident. I agree with the resident's findings and plan as documented. SUBJECTIVE: 47 year old female presents c/o left flank pain 7/10 in intensity associated with fever/chills. She underwent cystoscopy/litho and stent placement 5 days ago . PAST MEDICAL HISTORY: #Nephrolithiasis: spontaneously passed stone in February 2017, #HTN - on lisinopril #GERD PAST SURGICAL HISTORY: #L L ureteropyeloscopic laser lithotripsy and L JJ stent insertion #C-sections x3 (30y ago) #Knee surgery (32y ago) Social History: Smoking: denies Alcohol: occasional (3 drinks/mo) Drugs: denies Family History: +HTN, DM, No family h/o nephrolithiasis, Allergies: NKDA OBJECTIVE: Vital Signs Temperature 99.1 F 06/06/17 03:42 Pulse Rate 97 H 06/06/17 03:42 Respiratory Rate 20 06/06/17 03:42 Blood Pressure 120/70 06/06/17 03:42 O2 Sat by Pulse Oximetry (%) 100 06/06/17 01:40 EARS, NOSE, THROAT: Oropharynx clear without exudates. Moist mucous membranes. NECK: supple, no cervical LAD LUNGS: CTAB, no wheezes, and no crackles HEART: Regular rate and rhythm, normal S1 and S2 without murmur, rub or gallop. ABDOMEN: moderately distended, LLQ tenderness to palpation, normoactive bowel sounds, no hepatomegaly or splenomegaly : L CVA tenderness, suprapubic tenderness 06/05/17 20:58 06/05/17 20:58 ASSESSMENT AND PLAN: 47 year old female with history of nephrolithiasis and recent cystoscopy / stent placement that presents with acute pyelonephritis despite treatment with ORAL Bactrim - admit as an inpatient - IV rocephine - blood and urine culture - urology consultation - c/w rest of the home meds
[2017-06-06] MEDS: morphine CARPU-JECT 2 MG/1 ML DISP.SYRIN IVPUSH PRN ×3 (08:03→16:57)
[2017-06-06 08:19] LABS: MCH 26.9 pg (25.7-33.7); MCHC 32.1 g/dl (32.0-36.0); MEAN CELL VOLUME 83.7 fl (80-96); MEAN PLT VOLUME 7.9 fl (7.5-11.1); PLATELET COUNT 258 K/MM3 (134-434); RDW 19.5 % (11.6-15.6); WHITE BLOOD COUNT 9.7 K/mm3 (4.0-10.0)
[2017-06-06 08:25] LABS: ANION GAP 9 (8-16); CALCIUM 7.9 mg/dL (8.5-10.1); CO2 24 mmol/L (21-32); CREATININE 0.7 mg/dL (0.55-1.02); GLUCOSE,RANDOM 99 mg/dL (74-106)
[2017-06-06 08:33] LABS: INR 0.98 (0.82-1.09); PROTHROMBIN TIME (PATIENT) 10.8 SEC (9.98-11.88)
[2017-06-06] MEDS ORDERED: cefTRIAXone 2 GM/100 ML BAG (PRE-DOCKED) IVPB SCH (10:00)
[2017-06-06] MEDS ORDERED: PATIENT'S OWN MEDICATION (NON-FORMULARY) (Omega-3 Fatty Acids [Fish Oil] 300 MG) PO SCH (10:00)
[2017-06-06] MEDS ORDERED: CEFTRIAXONE 2 GM in DEXTROSE 5%-WATER 100 ML IVPB SCH (10:00)
[2017-06-06] MEDS ORDERED: DEXTROSE 5%-WATER 100 ML IVPB ONE ×4 (10:56→20:39)
--- NOTE | 2017-06-06 12:24 | PN ---
Progress Note (short form) - Note Progress Note: ID Consult dictated Complicated UTI, possible sepsis secondary to UTI S/P Ureteral stent placement Await cultures Empiric cefepime Urology evaluation
--- NOTE | 2017-06-06 14:20 | CON.GU ---
Consult Consult Specialty:: Urology Referred by:: Lele Reason for Consultation:: fever s/p lithotripsy - History of Present Illness Chief Complaint: fever History of Present Illness: 47 yo f s/p LULL and JJ stent insertion 05/31 who pres to ED c/o fever to 102, abd and L flank pain despite bactrim and percocet. She was found to have WBC 11 k and was adm for iv abxs. U/S revealed L renal calculus 1.1 cm w/o hydro and cons req. - History Source History Provided By: Patient, Medical Record Limitations to Obtaining History: No Limitations - Past Medical History ...LMP: 05/25/17 - Alcohol/Substance Use Hx Alcohol Use: Yes (SOCIALLY) - Smoking History Smoking history: Current every day smoker Have you smoked in the past 12 months: Yes Aproximately how many cigarettes per day: 1 Home Medications - Allergies Allergies/Adverse Reactions: Allergies Allergy/AdvReac Type Severity Reaction Status Date / Time No Known Allergies Allergy Verified 06/05/17 20:14 - Home Medications Home Medications: Ambulatory Orders Acetaminophen [Tylenol] 650 mg PO PRN PRN 05/28/17 Ferrous Sulfate [Feosol] 325 mg PO HS 05/28/17 Lisinopril [Prinivil] 20 mg PO HS 05/28/17 [place]-3 Fatty Acids [Fish Oil] 300 mg PO DAILY 05/28/17 Oxycodone HCl/Acetaminophen [Percocet 5-325 mg Tablet] 1 - 2 tab PO Q4H PRN #60 tablet MDD 6 05/31/17 Sulfamethoxazole/Trimethoprim [Bactrim Ds Tablet] 1 each PO BID #14 tablet 05/31 Review of Systems - Review of Systems Constitutional: reports: Chills, Fever Gastrointestinal: reports: Abdominal Pain Genitourinary: reports: Flank Pain Physical Exam- Vital Signs: Vital Signs Temperature 98.9 F 06/06/17 06:40 Pulse Rate 86 06/06/17 06:40 Respiratory Rate 20 06/06/17 06:40 Blood Pressure 120/75 06/06/17 06:40 O2 Sat by Pulse Oximetry (%) 100 06/06/17 01:40 Constitutional: Yes: Well Nourished, No Distress, Calm Gastrointestinal: Yes: Normal Bowel Sounds, Soft Renal/: Yes: CVA Tenderness - Left Labs: CBC, BMP 06/06/17 06:30 06/06/17 06:30 Imaging - Results Ultrasound: Report Reviewed Assessment/Plan Imp: UTI vs L pyelonephritis s/p L ureteroscopic laser lithotripsy and JJ stent insertion, resolved leukocytosis. Rec: cont ceftriaxone and analgesics prn, await urine c+s, L JJ stent removed.
--- NOTE | 2017-06-06 16:28 | CONS ---
INFECTIOUS DISEASE CONSULTATION DATE OF CONSULTATION: 06/06/2017 The patient is a 47-year-old female with a history of nephrolithiasis, evaluated for possible sepsis secondary to urinary tract focus. Patient has a history of nephrolithiasis. She recently underwent an outpatient lithotripsy procedure on May 31, 2017. She underwent cystoscopy with left ureteral stent placement. She reports that since the procedure, she has been having left flank discomfort. It got progressively worse over the past 2 days and is associated with dysuria, suprapubic pain, and fever to 101.5. She had been taking Bactrim Double Strength twice a day post procedure. At the present time, she complains of dysuria. Denies hematuria. Cultures were obtained, and she was empirically treated with ceftriaxone. She denies recent hospitalization other than for the ureteral stent placement. No recent antibiotic therapy other than the recent Bactrim. No history of resistant urinary tract pathogens. PAST MEDICAL HISTORY: Positive for nephrolithiasis, hypertension. PAST SURGICAL HISTORY: Status post section, knee surgery. ALLERGIES: No known allergies. MEDICATIONS: Tylenol, Flonase, Prinivil, Percocet, Bactrim. SOCIAL HISTORY: Positive for tobacco use. Occasional EtOH. No history of illicit drug use. SYSTEMS REVIEW: Neurologic: No loss of consciousness, seizure activity, focal weakness. Cardiac: Negative chest pain or palpitations. Respiratory: Negative cough or sputum production. Gastrointestinal: Negative vomiting or diarrhea. Genitourinary: As per HPI. LABORATORY DATA: White count 9.7, hematocrit 27.5, platelet count 258. Creatinine 0.7. Urinalysis: White cells 33. Blood and urine cultures pending. PHYSICAL EXAMINATION: General: She is awake and alert. She is in moderate distress secondary to left flank pain. Vital Signs: Temperature 98.9; blood pressure 120/75; pulse 86, regular; respirations 20 per minute. HEENT: Sclerae are anicteric. Heart: Sounds S1, S2. Lungs: Clear. Abdomen: Soft. Positive suprapubic tenderness. Positive left flank tenderness. Extremities: Negative for edema. IMPRESSION: 1. Complicated urinary tract infection, possible sepsis secondary to urinary tract infection. 2. Status post ureteral stent placement. 3. Nephrolithiasis. Await blood and urine culture results. Urology evaluation. Empiric antibiotic coverage pending sepsis workup with cefepime 1 g IV piggyback every 8 hours, IV fluid hydration, analgesics. Thank you for the kind referral. PRIYA ABDALLA M.D. [id number]
--- NOTE | 2017-06-06 16:30 | PN ---
<Gibran Delcid - Last Filed: 06/06/17 16:13> Physical Exam: SUBJECTIVE: Patient seen and examined this AM. Patient was writhing in the bed with mild discomfort. Patient states the pain started right after surgery, unchanged. Pt had 2 episodes of fevers and chills which brought her into the hospital. No other complaints of SOB, CP, fevers, chills this AM. OBJECTIVE: Vital Signs Period Temp Pulse Resp BP Sys/Mccormack Pulse Ox Last 24 Hr 98.2 F-99.1 F 83-97 16-20 120-135/62-83 100 GENERAL: The patient is awake, alert, and fully oriented, in moderate distress due to pain HEENT: PERRLA, ECOMi, Pt wears glasses, conjunctiva clear, neck supple without LAD LUNGS: CTABL, no wheezes, no crackles, no accessory muscle use HEART: RRR. S1, S2, no murmurs, no rubs, no gallops ABDOMEN: Soft, nondistended, normoactive bowel sounds. TTP in suprapubic region + L CVA tenderness, no CVA tenderness on R, all other regions of abdomen are non -tender EXTREMITIES: 2+ pulses, warm, well-perfused, no edema NEUROLOGICAL: A full neurological exam was performed. Patient is oriented x3. Cranial nerves 2-12 were grossly intact. Sensation was equal and intact in face and body bilaterally. Muscles were 5/5 in all extremities. Reflexes 2+. Normal speech, gait not observed. Laboratory Results - last 24 hr 06/06/17 06/06/17 06/06/17 06:30 06:30 06:30 WBC 9.7 RBC 3.29 L Hgb 8.8 L Hct 27.5 L MCV 83.7 MCH 26.9 MCHC 32.1 RDW 19.5 H Plt Count 258 D MPV 7.9 INR 0.98 Sodium 138 Potassium 3.7 Chloride 105 Carbon Dioxide 24 Anion Gap 9 BUN 7 D Creatinine 0.7 D Random Glucose 99 Calcium 7.9 L Active Medications Generic Name Dose Route Start Last Admin Trade Name Freq PRN Reason Stop Dose Admin Acetaminophen 650 mg 06/06/17 05:06 Tylenol - PO Q4H PRN PAIN Ferrous Sulfate 325 mg 06/06/17 22:00 Feosol - PO HS ARISTEO Heparin Sodium (Porcine) 5,000 unit 06/06/17 03:30 06/06/17 12:57 Heparin - SQ Not Given Q8H-IV ARISTEO Sodium Chloride 1,000 mls @ 100 mls/hr 06/06/17 03:30 06/06/17 05:00 Normal Saline - IV 100 mls/hr ASDIR ARISTEO Administration Cefepime HCl 1 gm/ Dextrose 100 mls @ 200 mls/hr 06/06/17 18:00 IVPB Q8H-IV ARISTEO Lisinopril 20 mg 06/06/17 22:00 Prinivil PO HS ARISTEO Morphine Sulfate 2 mg 06/06/17 03:21 06/06/17 12:56 Morphine Injection - IVPUSH 2 mg Q4H PRN Administration PAIN Ondansetron HCl 8 mg 06/06/17 03:21 06/06/17 08:00 Zofran Injection IVPB 8 mg Q6H PRN Administration NAUSEA IMAGING: Renal Ultrasound 06-05-2017: Right kidney appears normal. The left kidney contains a 1.1 cm nonobstructing stone in the midpole without hydronephrosis. ASSESSMENT/PLAN: Pt is a 47yo F with h/o HTN and nephrolithiasis who is POD#5 from L ureteroscopic laser lithotripsy and JJ stent placement on Bactrim who presents fever/nausea/L flank pain that is c/w pyelonephritis vs UTI, and will be admitted for further monitoring and management. Her labs are notable for mild leukocytosis (WBC 11K), pyuria and hematuria with 3+ leuk esterase. # UTI vs L pyelonephritis - JJ sent removed by Dr. Geovanny Nelson - (patient's urologist) at bedside - Patient had been takiing Bactrim postop, switched to Cefepime 1g Q8 IV as per ID recommendations - Urine cx are pending, will narrow spectrum when S/S is available - Pain control w/ Morphine 2mg IV push Q4PRN + Acetaminophen 650mg PO Q4 PRN - Ondansetron 8mg IVPUSH q6hr for nausea #HTN - well controlled - SBP 120s - 130s, well controlled - Continue home Lisinopril 20mg PO HS #Anemia - Asymptomatic at this moment - Will continue home ferrous sulfate 325mg PO #FEN - Fluids: IV NS at 100cc/hr - Electrolytes: BMP shows low Ca2+ 7.9, will continue to monitor, replete if necessary - Diet: Switched from NPO --> low sodium diet by Dr. Nelson # Prophylaxis - DVT: Heparin SQ Q8 - GI: Not indicated - Deconditioning: Only limitation to movement is pain, encouraged ambulation when pain resolves, no physical therapy needed # Code Status - Full Code Visit type - Emergency Visit Emergency Visit: No - New Patient This patient is new to me today: No - Critical Care Critical Care patient: No - Discharge Referral [facility]erred to [facility] No <LeleNavinisi - Last Filed: 06/07/17 08:01> Physical Exam: SUBJECTIVE: Patient seen and examined OBJECTIVE: Vital Signs Period Temp Pulse Resp BP Sys/Mccormack Pulse Ox Last 24 Hr 98.4 F-99.2 F 81-92 18-20 124-136/77-85 GENERAL: The patient is awake, alert, and fully oriented, in no acute distress. HEAD: Normal with no signs of trauma. EYES: PERRL, extraocular movements intact, sclera anicteric, conjunctiva clear. No ptosis. ENT: Ears normal, nares patent, oropharynx clear without exudates, moist mucous membranes. NECK: Trachea midline, full range of motion, supple. LUNGS: Breath sounds equal, clear to auscultation bilaterally, no wheezes, no crackles, no accessory muscle use. HEART: Regular rate and rhythm, S1, S2 without murmur, rub or gallop. ABDOMEN: Soft, nontender, nondistended, normoactive bowel sounds, no guarding, no rebound, no hepatosplenomegaly, no masses. EXTREMITIES: 2+ pulses, warm, well-perfused, no edema. NEUROLOGICAL: Cranial nerves II through XII grossly intact. Normal speech, gait not observed. PSYCH: Normal mood, normal affect. SKIN: Warm, dry, normal turgor, no rashes or lesions noted Laboratory Results - last 24 hr 06/06/17 06/06/17 06/06/17 06:30 06:30 06:30 WBC 9.7 RBC 3.29 L Hgb 8.8 L Hct 27.5 L MCV 83.7 MCH 26.9 MCHC 32.1 RDW 19.5 H Plt Count 258 D MPV 7.9 INR 0.98 Sodium 138 Potassium 3.7 Chloride 105 Carbon Dioxide 24 Anion Gap 9 BUN 7 D Creatinine 0.7 D Random Glucose 99 Calcium 7.9 L Active Medications Generic Name Dose Route Start Last Admin Trade Name Jacquesq PRN Reason Stop Dose Admin Acetaminophen 650 mg 06/06/17 05:06 06/06/17 21:56 Tylenol - PO 650 mg Q4H PRN Administration PAIN Ferrous Sulfate 325 mg 06/06/17 22:00 06/06/17 21:42 Feosol - PO 325 mg HS ARISTEO Administration Heparin Sodium (Porcine) 5,000 unit 06/06/17 03:30 06/07/17 01:49 Heparin - SQ Not Given Q8H-IV ARISTEO Sodium Chloride 1,000 mls @ 100 mls/hr 06/06/17 03:30 06/07/17 01:54 Normal Saline - IV 100 mls/hr ASDIR ARISTEO Administration Cefepime HCl 1 gm/ Dextrose 100 mls @ 200 mls/hr 06/06/17 18:00 06/07/17 01:27 IVPB 200 mls/hr Q8H-IV ARISTEO Administration Lisinopril 20 mg 06/06/17 22:00 06/06/17 21:42 Prinivil PO 20 mg HS ARISTEO Administration Morphine Sulfate 2 mg 06/06/17 03:21 06/07/17 01:53 Morphine Injection - IVPUSH 2 mg Q4H PRN Administration PAIN Ondansetron HCl 8 mg 06/06/17 03:21 06/06/17 08:00 Zofran Injection IVPB 8 mg Q6H PRN Administration NAUSEA ASSESSMENT/PLAN: Patient was on Bactrim at home, was on Rocephin Iv 2gm on admission and was changed to Cefepime as per ID.
--- NOTE | 2017-06-06 16:31 | PN ---
Teaching Attending Note Name of Resident: Gibran Delcid ATTENDING PHYSICIAN STATEMENT I saw and evaluated the patient. I reviewed the resident's note and discussed the case with the resident. I agree with the resident's findings and plan as documented. SUBJECTIVE: Patient stated that her pain continues, no change from last night. OBJECTIVE: Vital Signs Temperature 98.4 F 06/06/17 14:43 Pulse Rate 83 06/06/17 14:43 Respiratory Rate 18 06/06/17 14:43 Blood Pressure 132/83 06/06/17 14:43 O2 Sat by Pulse Oximetry (%) 100 06/06/17 01:40 CBCD WBC 9.7 K/mm3 (4.0-10.0) 06/06/17 06:30 RBC 3.29 M/mm3 (3.60-5.2) L 06/06/17 06:30 Hgb 8.8 GM/dL (10.7-15.3) L 06/06/17 06:30 Hct 27.5 % (32.4-45.2) L 06/06/17 06:30 MCV 83.7 fl (80-96) 06/06/17 06:30 MCHC 32.1 g/dl (32.0-36.0) 06/06/17 06:30 RDW 19.5 % (11.6-15.6) H 06/06/17 06:30 Plt Count 258 K/MM3 (134-434) D 06/06/17 06:30 MPV 7.9 fl (7.5-11.1) 06/06/17 06:30 CMP Sodium 138 mmol/L (136-145) 06/06/17 06:30 Potassium 3.7 mmol/L (3.5-5.1) 06/06/17 06:30 Chloride 105 mmol/L (98-107) 06/06/17 06:30 Carbon Dioxide 24 mmol/L (21-32) 06/06/17 06:30 Anion Gap 9 (8-16) 06/06/17 06:30 BUN 7 mg/dL (7-18) D 06/06/17 06:30 Creatinine 0.7 mg/dL (0.55-1.02) D 06/06/17 06:30 Creat Clearance w eGFR 59.69 (>60) 06/05/17 20:58 Random Glucose 99 mg/dL (74-106) 06/06/17 06:30 Calcium 7.9 mg/dL (8.5-10.1) L 06/06/17 06:30 Total Bilirubin 0.2 mg/dL (0.2-1.0) 06/05/17 20:58 AST 14 U/L (15-37) L 06/05/17 20:58 ALT 19 U/L (12-78) 06/05/17 20:58 Alkaline Phosphatase 107 U/L (45-117) D 06/05/17 20:58 Total Protein 7.1 g/dl (6.4-8.2) 06/05/17 20:58 Albumin 2.8 g/dl (3.4-5.0) L 06/05/17 20:58 Home Medications Medication Instructions Recorded Acetaminophen [Tylenol] 650 mg PO PRN PRN 05/28/17 Ferrous Sulfate [Feosol] 325 mg PO HS 05/28/17 Lisinopril [Prinivil] 20 mg PO HS 05/28/17 [place]-3 Fatty Acids [Fish Oil] 300 mg PO DAILY 05/28/17 Oxycodone HCl/Acetaminophen 1 - 2 tab PO Q4H PRN #60 tablet 05/31/17 [Percocet 5-325 mg Tablet] MDD 6 Sulfamethoxazole/Trimethoprim 1 each PO BID #14 tablet 05/31/17 [Bactrim Ds Tablet] Current Medications Generic Name Dose Route Start Last Admin Trade Name Freq PRN Reason Stop Dose Admin Acetaminophen 650 mg 06/06/17 05:06 Tylenol - PO Q4H PRN PAIN Ferrous Sulfate 325 mg 06/06/17 22:00 Feosol - PO HS ARISTEO Heparin Sodium (Porcine) 5,000 unit 06/06/17 03:30 06/06/17 12:57 Heparin - SQ Not Given Q8H-IV ARISTEO Sodium Chloride 1,000 mls @ 100 mls/hr 06/06/17 03:30 06/06/17 05:00 Normal Saline - IV 100 mls/hr ASDIR ARISTEO Administration Cefepime HCl 1 gm/ Dextrose 100 mls @ 200 mls/hr 06/06/17 18:00 IVPB Q8H-IV ARISTEO Lisinopril 20 mg 06/06/17 22:00 Prinivil PO HS ARISTEO Morphine Sulfate 2 mg 06/06/17 03:21 06/06/17 12:56 Morphine Injection - IVPUSH 2 mg Q4H PRN Administration PAIN Ondansetron HCl 8 mg 06/06/17 03:21 06/06/17 08:00 Zofran Injection IVPB 8 mg Q6H PRN Administration NAUSEA Urine Test Results Urine Color Yellow 06/05/17 21:30 Urine Appearance Slcloudy 06/05/17 21:30 Urine pH 6.0 (5.0-8.0) 06/05/17 21:30 Ur Specific [place] >= 1.030 (1.005-1.025) H 06/05/17 21:30 Urine Protein 2+ (NEGATIVE) H 06/05/17 21:30 Urine Glucose (UA) Negative (NEGATIVE) 06/05/17 21:30 Urine Ketones Negative (NEGATIVE) 06/05/17 21:30 Urine Blood 2+ (NEGATIVE) H 06/05/17 21:30 Urine Nitrite Negative (NEGATIVE) 06/05/17 21:30 Urine Bilirubin Negative (NEGATIVE) 06/05/17 21:30 Ur Leukocyte Esterase 3+ (NEGATIVE) H D 06/05/17 21:30 Urine RBC 850 /hpf (0-3) 06/05/17 21:30 Urine WBC 33 /hpf (3-5) 06/05/17 21:30 Ur Epithelial Cells Rare /hpf (FEW) 06/05/17 21:30 Urine Mucus Rare 06/05/17 21:30 PE: per resident's note No CVA tenderness. Renal Ultrasound 06-05-2017: Right kidney appears normal. The left kidney contains a 1.1 cm nonobstructing stone in the midpole without hydronephrosis. ASSESSMENT/PLAN: Pt is a 47yo F with h/o HTN and nephrolithiasis who is POD#5 from L ureteroscopic laser lithotripsy and JJ stent placement AND WAS placed on PO Bactrim and was admitted for UTI/Pylonephritis # Acute UTI vs Left pyelonephritis s/p JJ stent placement , patient was started on IV antibiotic Rocephin 2gm , ID consulted to evaluate the patient further Rocephin IV was changed to Cefepime as per ID. s/p removal of JJ stent as per by Dr. Geovanny Nelson - (patient's urologist) at bedside. urine culture is pending. #HTN - well controlled continue home meds #Anemia asymptomatic at this moment, on home ferrous sulfate 325mg PO continue DVT: Heparin SQ Q8 Code Status : Full Code
[2017-06-06] MEDS ORDERED: CEFEPIME HCL 1 GM VIAL (RESTRICTED TO ID) ONE ×2 (17:36→20:39)
[2017-06-06] MEDS ORDERED: CEFEPIME HCL 1 GM VIAL (RESTRICTED TO ID) IVPB SCH (18:00)
[2017-06-06] MEDS: CEFEPIME 1 GM in DEXTROSE 5%-WATER 100 ML IVPB SCH (18:48)
[2017-06-06] MEDS ORDERED: LISINOPRIL 20 MG TABLET (FP) PO SCH (22:00)
[2017-06-06] MEDS ORDERED: FERROUS SO4 325 MG TABLET (FP) PO SCH (22:00)
[2017-06-06] MEDS ORDERED: morphine CARPU-JECT 2 MG/1 ML DISP.SYRIN IVPUSH ONE (22:47)
[2017-06-07] MEDS ORDERED: CEFEPIME HCL 1 GM VIAL (RESTRICTED TO ID) ONE ×2 (00:57→10:45)
[2017-06-07] MEDS ORDERED: DEXTROSE 5%-WATER 100 ML IVPB ONE ×2 (00:57→10:45)
[2017-06-07] MEDS: CEFEPIME 1 GM in DEXTROSE 5%-WATER 100 ML IVPB SCH ×2 (01:27→10:50)
[2017-06-07] MEDS: HEPARIN NA (PORCINE) 5,000 UNITS/ML 1ML VIAL SQ SCH ×2 (01:49→10:52)
[2017-06-07] MEDS: morphine CARPU-JECT 2 MG/1 ML DISP.SYRIN IVPUSH PRN ×3 (01:53→13:20)
[2017-06-07] MEDS: SODIUM CHLORIDE 1,000 ML IV SCH ×2 (01:54→08:07)
[2017-06-07 08:07] LABS: MCH 26.7 pg (25.7-33.7); MEAN CELL VOLUME 83.5 fl (80-96); MEAN PLT VOLUME 7.7 fl (7.5-11.1); PLATELET COUNT 281 K/MM3 (134-434); RDW 19.3 % (11.6-15.6); WHITE BLOOD COUNT 10.7 K/mm3 (4.0-10.0)
[2017-06-07 08:34] LABS: ANION GAP 8 (8-16); CALCIUM 8.2 mg/dL (8.5-10.1); CO2 24 mmol/L (21-32); CREATININE 0.7 mg/dL (0.55-1.02); GLUCOSE,RANDOM 87 mg/dL (74-106)
--- NOTE | 2017-06-07 12:57 | PN ---
Progress Note (short form) - Note Progress Note: pt w/o c/o less L flank pain after stent removed vss afeb - CVAT abd soft nt urine c+s NG Imp: L renal calculus, ? UTI s/p LULL Rec: OK for disch on Augmentin 875 mg bid x 1 week, RTO next week
--- NOTE | 2017-06-07 14:54 | PN ---
Progress Note, Physician History of Present Illness: S/P removal of L ureteral stent Reports some L flank and suprapubic discomfort No fever/ chills Cultures negative - Current Medication List Current Medications: Active Medications Acetaminophen (Tylenol -) 650 mg PO Q4H PRN PRN Reason: PAIN Last Admin: 06/06/17 21:56 Dose: 650 mg Ferrous Sulfate (Feosol -) 325 mg PO HS ARISTEO Last Admin: 06/06/17 21:42 Dose: 325 mg Heparin Sodium (Porcine) (Heparin -) 5,000 unit SQ Q8H-IV ARISTEO Last Admin: 06/07/17 10:52 Dose: Not Given Sodium Chloride (Normal Saline -) 1,000 mls @ 100 mls/hr IV ASDIR ARISTEO Last Admin: 06/07/17 08:07 Dose: Not Given Cefepime HCl 1 gm/ Dextrose 100 mls @ 200 mls/hr IVPB Q8H-IV ARISTEO Last Admin: 06/07/17 10:50 Dose: 200 mls/hr Lisinopril (Prinivil) 20 mg PO HS ARISTEO Last Admin: 06/06/17 21:42 Dose: 20 mg Ondansetron HCl (Zofran Injection) 8 mg IVPB Q6H PRN PRN Reason: NAUSEA Last Admin: 06/06/17 08:00 Dose: 8 mg - Objective Vital Signs: Vital Signs Temperature 98.1 F 06/07/17 09:00 Pulse Rate 88 06/07/17 09:00 Respiratory Rate 20 06/07/17 09:00 Blood Pressure 129/86 06/07/17 09:00 O2 Sat by Pulse Oximetry (%) 100 06/06/17 01:40 Constitutional: Yes: No Distress Eyes: Yes: Conjunctiva Clear Cardiovascular: Yes: Regular Rate and Rhythm, S1, S2 Respiratory: Yes: CTA Bilaterally Gastrointestinal: Yes: Normal Bowel Sounds, Soft, Other (mild suprapubic tenderness) Genitourinary: Yes: CVA Tenderness - Left Edema: No Labs: CBC, BMP 06/07/17 06:45 06/07/17 06:45 INR, PTT INR 0.98 (0.82-1.09) 06/06/17 06:30 Assessment/Plan S/P removal L ureteral stent UTI Nephrolithiasis Substitute po Augmentin additional 7d Outpatient follow up
[2017-06-07 15:26] VITALS: BP 137/84; PULSE 94; TEMP 98.2
--- NOTE | 2017-06-07 15:39 | PN ---
Teaching Attending Note Name of Resident: Gibran Delcid ATTENDING PHYSICIAN STATEMENT I saw and evaluated the patient. I reviewed the resident's note and discussed the case with the resident. I agree with the resident's findings and plan as documented. SUBJECTIVE: Patient is feeling better, with no acute distress. would like to go home. OBJECTIVE: Vital Signs Temperature 98.2 F 06/07/17 15:24 Pulse Rate 94 H 06/07/17 15:24 Respiratory Rate 20 06/07/17 15:24 Blood Pressure 137/84 06/07/17 15:24 O2 Sat by Pulse Oximetry (%) 100 06/06/17 01:40 CBCD WBC 10.7 K/mm3 (4.0-10.0) H 06/07/17 06:45 RBC 3.37 M/mm3 (3.60-5.2) L 06/07/17 06:45 Hgb 9.0 GM/dL (10.7-15.3) L 06/07/17 06:45 Hct 28.1 % (32.4-45.2) L 06/07/17 06:45 MCV 83.5 fl (80-96) 06/07/17 06:45 MCHC 32.0 g/dl (32.0-36.0) 06/07/17 06:45 RDW 19.3 % (11.6-15.6) H 06/07/17 06:45 Plt Count 281 K/MM3 (134-434) 06/07/17 06:45 MPV 7.7 fl (7.5-11.1) 06/07/17 06:45 CMP Sodium 139 mmol/L (136-145) 06/07/17 06:45 Potassium 3.9 mmol/L (3.5-5.1) 06/07/17 06:45 Chloride 107 mmol/L (98-107) 06/07/17 06:45 Carbon Dioxide 24 mmol/L (21-32) 06/07/17 06:45 Anion Gap 8 (8-16) 06/07/17 06:45 BUN 8 mg/dL (7-18) 06/07/17 06:45 Creatinine 0.7 mg/dL (0.55-1.02) 06/07/17 06:45 Creat Clearance w eGFR 59.69 (>60) 06/05/17 20:58 Random Glucose 87 mg/dL (74-106) 06/07/17 06:45 Calcium 8.2 mg/dL (8.5-10.1) L 06/07/17 06:45 Total Bilirubin 0.2 mg/dL (0.2-1.0) 06/05/17 20:58 AST 14 U/L (15-37) L 06/05/17 20:58 ALT 19 U/L (12-78) 06/05/17 20:58 Alkaline Phosphatase 107 U/L (45-117) D 06/05/17 20:58 Total Protein 7.1 g/dl (6.4-8.2) 06/05/17 20:58 Albumin 2.8 g/dl (3.4-5.0) L 06/05/17 20:58 Current Medications Generic Name Dose Route Start Last Admin Trade Name Freq PRN Reason Stop Dose Admin Acetaminophen 650 mg 06/06/17 05:06 06/06/17 21:56 Tylenol - PO 650 mg Q4H PRN Administration PAIN Ferrous Sulfate 325 mg 06/06/17 22:00 06/06/17 21:42 Feosol - PO 325 mg HS ARISTEO Administration Heparin Sodium (Porcine) 5,000 unit 06/06/17 03:30 06/07/17 10:52 Heparin - SQ Not Given Q8H-IV ARISTEO Sodium Chloride 1,000 mls @ 100 mls/hr 06/06/17 03:30 06/07/17 08:07 Normal Saline - IV Not Given ASDIR ARISTEO Cefepime HCl 1 gm/ Dextrose 100 mls @ 200 mls/hr 06/06/17 18:00 06/07/17 10:50 IVPB 200 mls/hr Q8H-IV ARISTEO Administration Lisinopril 20 mg 06/06/17 22:00 06/06/17 21:42 Prinivil PO 20 mg HS ARISTEO Administration Ondansetron HCl 8 mg 06/06/17 03:21 06/06/17 08:00 Zofran Injection IVPB 8 mg Q6H PRN Administration NAUSEA Home Medications Medication Instructions Recorded Acetaminophen [Tylenol] 650 mg PO PRN PRN 05/28/17 Ferrous Sulfate [Feosol] 325 mg PO HS 05/28/17 Lisinopril [Prinivil] 20 mg PO HS 05/28/17 [place]-3 Fatty Acids [Fish Oil] 300 mg PO DAILY 05/28/17 Oxycodone HCl/Acetaminophen 1 - 2 tab PO Q4H PRN #60 tablet 05/31/17 [Percocet 5-325 mg Tablet] MDD 6 Sulfamethoxazole/Trimethoprim 1 each PO BID #14 tablet 05/31/17 [Bactrim Ds Tablet] Microbiology 06/05/17 21:30 Urine - Urine Clean Catch Urine Culture - Final NO GROWTH OBTAINED 06/05/17 21:00 Blood - Peripheral Venous Blood Culture - Preliminary NO GROWTH OBTAINED AFTER 24 HOURS, INCUBATION TO CONTINUE FOR 4 DAYS. 06/05/17 21:00 Blood - Peripheral Venous Blood Culture - Preliminary NO GROWTH OBTAINED AFTER 24 HOURS, INCUBATION TO CONTINUE FOR 4 DAYS. PE: per resident's note No CVA tenderness. Renal Ultrasound 06-05-2017: Right kidney appears normal. The left kidney contains a 1.1 cm nonobstructing stone in the midpole without hydronephrosis. ASSESSMENT/PLAN: Pt is a 47yo F with h/o HTN and nephrolithiasis who is POD#5 from L ureteroscopic laser lithotripsy and JJ stent placement AND WAS placed on PO Bactrim and was admitted for UTI/Pylonephritis # Acute UTI vs Left pyelonephritis s/p JJ stent removal by Dr. Geovanny Nelson s/ p IV antibiotic Rocephin 2gm then as per ID ,IV was changed to Cefepime As per ID and urologist , patient can be discharged home on Augmentin 875mg po bid x [address]Marc Nelson in a week period. urine culture is negative. #HTN - controlled continue home meds #Anemia asymptomatic at this moment, on home ferrous sulfate 325mg PO continue will discharge patient home on Augmentin 875mg po bid x 7 days
--- NOTE | 2017-06-07 18:17 | DS ---
Physical Exam: SUBJECTIVE: Patient seen and examined this AM. Pain is resolving. No fevers, no chills, no CP, no SOB. OBJECTIVE: Vital Signs Period Temp Pulse Resp BP Sys/Mccormack Pulse Ox Last 24 Hr 98.1 F-99.2 F 88-94 20-20 129-137/77-86 PHYSICAL EXAM GENERAL: The patient is awake, alert, and fully oriented, in moderate distress due to pain HEENT: PERRLA, ECOMi, Pt wears glasses, conjunctiva clear, neck supple without LAD LUNGS: CTABL, no wheezes, no crackles, no accessory muscle use HEART: RRR. S1, S2, no murmurs, no rubs, no gallops ABDOMEN: Soft, nondistended, normoactive bowel sounds. TTP in suprapubic region + L CVA tenderness, no CVA tenderness on R, all other regions of abdomen are non -tender EXTREMITIES: 2+ pulses, warm, well-perfused, no edema NEUROLOGICAL: A full neurological exam was performed. Patient is oriented x3. Cranial nerves 2-12 were grossly intact. Sensation was equal and intact in face and body bilaterally. Muscles were 5/5 in all extremities. Reflexes 2+. Normal speech, gait not observed. LABS Laboratory Results - last 24 hr 06/07/17 06/07/17 06:45 06:45 WBC 10.7 H RBC 3.37 L Hgb 9.0 L Hct 28.1 L MCV 83.5 MCH 26.7 MCHC 32.0 RDW 19.3 H Plt Count 281 MPV 7.7 Sodium 139 Potassium 3.9 Chloride 107 Carbon Dioxide 24 Anion Gap 8 BUN 8 Creatinine 0.7 Random Glucose 87 Calcium 8.2 L HOSPITAL COURSE: Date of Admission:06/06/17 Date of Discharge: 06/07/17 Patient is a 47 year old female with PMHx of HTN and nephrolithiasis who recently had a L uteroscopic laser lithotripsy and JJ stent placement. She presented to ED five days post-op with fever, nausea, left flank pain that was consistent with pyelonephritis vs UTI, and was admitted for further monitoring and management. # Urinary Tract Infection - The patient was initially taking Bactrim which was given from the urology surgeon postop. While in the ER, the patient received Zofran 8mg IVPB Q6H PRN for nausea and antibiotics were switched to Rocephin 2gm IV. Urine analysis was positive for 2+ protein, 2+ blood, and 3+ leukocyte esterase. Later urine cultures (which were taken after Bactrim usage) were negative.The patient was examined by Infectious disease doctors who switched the patient from Rocephin to Cefepime IV 1gm. The patient was placed on Tylenol 650mg PO Q4H PRN and Morphine IV 4mg PRN for pain management. Dr Natan Nelson (patients urologist) followed the patient during hospitalization, and removed the stent at bedside on 06/06/2017. The patient will be discharged on Augmentin 875mg BID for one week + Acetaminophen for pain control, and will follow-up with Dr Nelson in one week. #History of Hypertension - well controlled - The patient was maintained on her home medication Lisinopril 20mg PO daily and daily BPs were monitored. BP remained controlled and stable throughout hospital course # History of Iron Deficiency Anemia - The patient was maintained on her home medication Ferrous Sulfate 325mg PO HS ARISTEO and H/H remained stable throughout hospital course. Patient remained asymptomatic. The hospital course and plan were discussed with the patient who verbalized understanding. Minutes to complete discharge: 55 Discharge Summary Reason For Visit: URINARY TRACT INFECTION Current Active Problems Pyelonephritis (Acute) Kidney stone (Chronic) Right upper quadrant abdominal pain (Chronic) Condition: Improved - Instructions Diet, Activity, Other Instructions: You were admitted for evaluation and treatment for urinary tract infection and was treated with IV antibiotics. Now we are sending you home on PO antibiotics ( Augmentin 1 tab two times a day for 7 days). Please follow up with Dr. Nelson in a week. Please also follow up with your primary doctor in a week. Return to the Emergency Department if symptoms get worse or if you develop any new symptoms. Referrals: Leland Powers MD [Primary Care Provider] - 2 Weeks Geovanny Nelson MD [Staff Physician] - 1 Week Disposition: HOME - Home Medications Comprehensive Discharge Medication List: Ambulatory Orders Acetaminophen [Tylenol] 650 mg PO PRN PRN 05/28/17 Ferrous Sulfate [Feosol] 325 mg PO HS 05/28/17 Lisinopril [Prinivil] 20 mg PO HS 05/28/17 [place]-3 Fatty Acids [Fish Oil] 300 mg PO DAILY 07/11/17 Oxycodone HCl/Acetaminophen [Percocet 5-325 mg Tablet] 1 - 2 tab PO Q4H PRN #60 tablet MDD 6 05/31/17 Amoxicillin/Potassium Clav [Augmentin 875-125 Tablet] 1 each PO BID #14 tablet 06/07/17 Problem List - Problems (1) Kidney stone Code(s): N20.0 - CALCULUS OF KIDNEY (2) Urinary tract infection Code(s): N39.0 - URINARY TRACT INFECTION, SITE NOT SPECIFIED This patient is new to me today: No Emergency Visit: No Critical Care patient: No - Discharge Referral Referred to [facility] No
== END 2017-06-07 17:45 | disposition home or self-care (01) | DRG 699 ==
LOC: JER 20:08 → JERBED 06-06 01:15 → UNDOADMIN 06-06 01:29 → J8W 06-06 02:53
PROVIDERS: ADMIT Internal Medicine; ATTEND Internal Medicine
PROC: 0TP9XDZ Removal of Intraluminal Device from Ureter, External Approach (ICD-10-PCS; principal; 2017-06-06)
DX: N99.89 Other postprocedural complications and disorders of genitourinary system (principal); N39.0 Urinary tract infection, site not specified; R50.9 Fever, unspecified; N20.0 Calculus of kidney; I10 Essential (primary) hypertension; F17.210 Nicotine dependence, cigarettes, uncomplicated; R10.32 Left lower quadrant pain; D50.9 Iron deficiency anemia, unspecified; R00.0 Tachycardia, unspecified; K21.9 Gastro-esophageal reflux disease without esophagitis; Y83.8 Other surgical procedures as the cause of abnormal reaction of the patient, or of later complication, without mention of misadventure at the time of the procedure
CPT/HCPCS: 36415; 76775-TC; 80048; 80053; 81003; 81015; 84703; 85025; 85027; 85610; 87040; 87086; 99283-25

== ENCOUNTER → 2017-08-13 | Day surgery (SDC) | payer OTHER ==
[~2017-08-13] MED LIST: IBUPROFEN 800 MG/8 ML IJ IVPB ONE; IBUPROFEN 800 MG/8 ML IJ IVPB PRN; LACTATED RINGERS SOLUTION 1,000 ML IV SCH; LIDOCAINE HCL/PF 2% SDV 5ML VIAL ONE; MIDAZOLAM HCL 2 MG/2 ML SINGLE DOSE VIAL ONE; ONDANSETRON 4 MG/2 ML VIAL IVPUSH PRN; PROPOFOL 20 ML ONE; oxyCODONE HCL 5 MG TABLET PO PRN
[2017-08-13 06:42] VITALS: BMI 26.9
--- NOTE | 2017-08-13 07:25 | HP ---
History & Physical Update - History History: No Change - Physical Physical: No Change - Assessment Assessment: No Change - Plan Plan: No Change
--- NOTE | 2017-08-13 07:30 | OP ---
Operative Note - Note: Operative Date: 08/13/17 Pre-Operative Diagnosis: L renal calculus Operation: ESWL L Findings: L renal calculus Post-Operative Diagnosis: Same as Pre-op Surgeon: Geovanny Nelson Anesthesiologist/IT INFRASTRUCTURE ENGINEER: Lubna Reeves Anesthesia: Fractional Estimated Blood Loss (mls): 0 Operative Report Dictated: Yes
[2017-08-13 09:56] VITALS: TEMP 97.6
[2017-08-13 11:02] VITALS: BP 140/88; PULSE 70
--- NOTE | 2017-08-14 06:55 | OP ---
DATE OF OPERATION: 08/13/2017 PREOPERATIVE DIAGNOSIS: Left ureteral calculus. POSTOPERATIVE DIAGNOSIS: Left ureteral calculus. PROCEDURE PERFORMED: Extracorporeal shock wave lithotripsy of left renal calculus. SURGEON: Geovanny Segovia M.D. AMMUNITION SPECIALIST: None. ANESTHESIA: IV sedation. ANESTHESIOLOGIST: Lubna Reeves MD SPECIMENS: None. CULTURES: None. DRAINS: None. ESTIMATED BLOOD LOSS: None. COMPLICATIONS: None. DESCRIPTION OF PROCEDURE: The patient was brought into the operating room and placed on the operating table in the supine position. After the administration of intravenous sedation, the patient was positioned over the treatment head. Under ultrasound guidance, an approximately 9-mm left mid to lower pole renal calculus was identified, targeted and delivered 2500 shocks at maximum kilovoltage, with excellent fragmentation. She tolerated the procedure well. She was transferred to the recovery room in stable condition. GEOVANNY SEGOVIA M.D. CELIO/[id number]
== END | disposition home or self-care (01) ==
LOC: JASU-SURG 06:13
PROVIDERS: ATTEND Urology
PROC: 0TF7XZZ Fragmentation in Left Ureter, External Approach (ICD-10-PCS; principal; 2017-08-13 07:30)
DX: N20.1 Calculus of ureter (principal)
CPT/HCPCS: 84703; 94760

== ENCOUNTER 2019-02-02 05:35 | Day surgery (SDC) | payer OTHER ==
[2019-01-27 16:50] VITALS: BMI 26.7
[~2019-02-02 05:35] MED LIST changes: +BUPIVACAINE HCL/PF (5 MG/ML) 30 ML VIAL IJ ONE; -IBUPROFEN 800 MG/8 ML IJ IVPB ONE; -IBUPROFEN 800 MG/8 ML IJ IVPB PRN; -LACTATED RINGERS SOLUTION 1,000 ML IV SCH; -LIDOCAINE HCL/PF 2% SDV 5ML VIAL ONE; -MIDAZOLAM HCL 2 MG/2 ML SINGLE DOSE VIAL ONE; -ONDANSETRON 4 MG/2 ML VIAL IVPUSH PRN; -PROPOFOL 20 ML ONE; -oxyCODONE HCL 5 MG TABLET PO PRN
[2019-02-02] MEDS ORDERED: CEFAZOLIN 1 GM/D5W 1 GM/50 ML BAG IVPB ONE (07:09)
[2019-02-02] MEDS ORDERED: SUCCINYLCHOLINE CHLORIDE 200 MG/10 ML VIAL ONE (07:15)
[2019-02-02] MEDS ORDERED: ceFAZolin SODIUM 1 GM VIAL ONE (07:15)
[2019-02-02] MEDS ORDERED: PROPOFOL 20 ML ONE (07:15)
[2019-02-02] MEDS ORDERED: MIDAZOLAM HCL 2 MG/2 ML SINGLE DOSE VIAL ONE ×3 (07:15→07:26)
[2019-02-02] MEDS ORDERED: fentaNYL CITRATE 250 MCG/5 ML VIAL ONE (07:15)
[2019-02-02] MEDS ORDERED: ROCURONIUM BROMIDE 50 MG/5 ML VIAL ONE ×2 (07:15→09:51)
[2019-02-02] MEDS ORDERED: LIDOCAINE HCL/PF 2% SDV 5ML VIAL ONE (07:15)
[2019-02-02] MEDS: PHENAZOPYRIDINE HCL 100 MG TABLET (FP) PO ONE ×2 (07:15→15:34)
[2019-02-02] MEDS ORDERED: DEXAMETHASONE SOD PHOSPHATE 4 MG/1 ML VIAL ONE ×2 (07:15→11:00)
[2019-02-02] MEDS ORDERED: DEXAMETHASONE SOD PHOSPHATE/PF 10 MG/ML SDV ONE (07:17)
[2019-02-02] MEDS ORDERED: BUPIVACAINE HCL/PF 0.25% (2.5MG/ML) 10 ML VIAL ONE (07:17)
--- NOTE | 2019-02-02 07:29 | HP ---
History & Physical Update - History History: No Change - Physical Physical: No Change - Assessment Assessment: No Change - Plan Plan: No Change (Full H&P on 01/12/19)
[2019-02-02] MEDS ORDERED: ceFAZolin SODIUM 1 GM VIAL IVPB ONE (08:50)
[2019-02-02] MEDS ORDERED: oxyCODONE HCL 5 MG TABLET PO PRN ×4 (09:04→11:36)
[2019-02-02] MEDS ORDERED: ONDANSETRON 4 MG/2 ML VIAL IVPUSH PRN ×2 (09:04→11:36)
[2019-02-02] MEDS ORDERED: LACTATED RINGERS SOLUTION 1,000 ML IV SCH (09:15)
[2019-02-02] MEDS ORDERED: ACETAMINOPHEN 1000 MG/100 ML VIAL (NON FORMULARY) IVPB ONE ×2 (09:29→11:41)
[2019-02-02] MEDS ORDERED: DESFLURANE GAS 240 ML BOTTLE IH ONE (10:23)
[2019-02-02] MEDS ORDERED: BUPIVACAINE HCL/PF (5 MG/ML) 30 ML VIAL IJ ONE (11:00)
[2019-02-02] MEDS ORDERED: GLYCOPYRROLATE 0.2 MG/1 ML VIAL ONE (11:01)
[2019-02-02] MEDS ORDERED: NEOSTIGMINE METHYLSULFATE 0.5 MG/ML - 10 ML MDV ONE (11:01)
[2019-02-02] MEDS ORDERED: IBUPROFEN 800 MG/8 ML IJ IVPB PRN (11:36)
[2019-02-02] MEDS ORDERED: DOCUSATE SODIUM 100 MG CAPSULE (FP) PO PRN (11:36)
[2019-02-02] MEDS ORDERED: BISACODYL 5 MG TABLET.DR (FP) PO PRN (11:36)
--- NOTE | 2019-02-02 11:42 | OP ---
Operative Note - Note: Operative Date: 02/02/19 Pre-Operative Diagnosis: Chronic Pelvic Pain. Leiomyomatous Uterus Operation: Robotic Laparoscopic Total Hysterectomy. Bilateral Salpingectomy Findings: Uterus 10 cm Post-Operative Diagnosis: Same as Pre-op Surgeon: Nelida Salazar Assembly Machine Operator: Tevin Fung Anesthesia: General Estimated Blood Loss (mls): 25 Operative Report Dictated: Yes
--- NOTE | 2019-02-02 11:42 | OP ---
Operative Note - Note: Operative Date: 02/02/19 Pre-Operative Diagnosis: Fibroid uterus Operation: Robotic assisted hysterectomy and bilateral salpingectomy Post-Operative Diagnosis: Same as Pre-op Surgeon: Nelida Salazar Plush Brusher: Tevin Fung Anesthesiologist/DEPALLETIZER OPERATOR: Gricelda Mckoy Anesthesia: General Operative Report Dictated: Yes
--- NOTE | 2019-02-02 12:21 | OP ---
DATE OF OPERATION: 02/02/2019 PREOPERATIVE DIAGNOSIS: Pelvic pain, leiomyomatous uterus. OPERATION: Robotic laparoscopic total hysterectomy and bilateral salpingectomy. SURGEON: Rosangela Houston MD GRADUATE FELLOW: CLAUDE Abarca ANESTHESIA: General. ANESTHESIOLOGIST: Mikey Law MD, nurse nurse esthetician, Gricelda Mckoy. FINDINGS: Uterus approximately 10 cm in size with bowel attached to the uterus as well as the anterior abdominal wall. ESTIMATED BLOOD LOSS: 50 mL. DESCRIPTION OF PROCEDURE: The patient was taken to the operating room and placed in dorsal lithotomy position, prepped and draped in the usual sterile fashion. A time-out was performed in accordance with hospital regulation. Speculum was placed in the vagina. Anterior lip of the cervix was grasped with a single-tooth tenaculum. The cervix was then dilated to accommodate the uterine manipulator. Zamarripa catheter was then inserted. Attention was then drawn to the umbilicus where an 8-mm umbilical incision was made. Veress needle was inserted into the cavity. Approximately 3 -4 L of CO2 was insufflated in the cavity. Veress needle was then removed. An 8-mm trocar was then introduced. Laparoscope with a camera was attached. Visualization revealed numerous adhesions. A 2nd and 3rd trocars were placed on the left side 8 mm parallel to the umbilical incision. Scalpel was then used, and 8-mm trocars were then inserted under direct visualization. Scope was then introduced, and anterior lysis was then performed to remove the omental adhesions noted on the left side. A 4th trocar was then inserted on the left side as well as an upper abdomen incision 5 mm. An AirSeal cannula was introduced. Trocars were placed correctly, and instruments were then introduced. Vessel sealer was placed on the left. Tenaculum was placed on the right as well as Endo Edith on the right. After proper placement of the trocars and instruments done, attention was then drawn to the console where a tenaculum was then used to elevate the uterus to the right side. The uterine ovarian ligament was identified, clamped, and cut. The uterine artery was identified, clamped, and cut. Vesicouterine reflection was then entered, and the bladder was bluntly dissected out of the operative field. The bladder was severely adherent to the uterus. The ureters were identified and found to have peristalsis. The same procedure was repeated on the other side. The utero-ovarian ligament was identified, clamped, and cut. The patient had a tubal ligation, and the proximal end of the tube was removed. The uterine artery was then identified, clamped, and cut. The cardinal ligament was identified, clamped, and cut down to the level of the cervix. The vagina was then entered, and circumferential incision was made on the vagina around the cervix. The uterus was identified and found to be peristalsis. The cervix was then removed, and the uterus and tubes were bilaterally grasped. The distal end was bilaterally grasped, and coagulation with the LigaSure was done cutting, and bilateral tubes were removed. Distal portion of the tubes were removed. The ovaries were noted to be normal. The 2-0 V-Lock suture was introduced, and the Da Miguelito robot was then used to close the vagina. Hemostasis was achieved. Ureters were identified and right found to have the peristalsis. [place] urine was seen coming out of the Zamarripa due to the Pyridium that had been given prior. Suture was removed. The needle was then removed from the abdomen. All bleeding was found to be hemostatic. CO2 was removed from the abdomen. Trocars were removed. Incision were then closed using 4-0 Biosyn suture in a subcuticular fashion. The wound was washed and dressed. The patient tolerated the procedure well and was taken to the recovery room in stable condition. ROSANGELA HOUSTON M.D. [id number] MTDD
--- NOTE | 2019-02-02 13:40 | SURG ---
Surgery Occupational Therapist Rehab Manager Note Occupational Therapist Rehab Manager: Tevin Fung PA-C Date of Service: 02/02/19 Diagnosis: Fibroid uterus Procedure: Robotic assisted hysterectomy and bilateral salpingectomy I was present for the entirety of the operative procedure. For further detail, please refer to operative report. Visit type - Case Type Case Type: Scheduled - Emergency Emergency Visit: No - New patient This patient is new to me today: Yes Date on this admission: 02/02/19
[2019-02-02] MEDS: CEFAZOLIN 1 GM/D5W 1 GM/50 ML BAG IVPB SCH (17:49)
[2019-02-02 18:36] LABS: HEMATOCRIT 30.5 % (32.4-45.2); HEMOGLOBIN 9.7 GM/dL (10.7-15.3); MCH 24.6 pg (25.7-33.7); MCHC 31.6 g/dl (32.0-36.0); MEAN CELL VOLUME 77.8 fl (80-96); MEAN PLT VOLUME 8.5 fl (7.5-11.1); PLATELET COUNT 301 K/MM3 (134-434); RBC 3.93 M/mm3 (3.60-5.2); RDW 18.6 % (11.6-15.6); WHITE BLOOD COUNT 15.6 K/mm3 (4.0-10.0)
[2019-02-02 19:03] LABS: ANION GAP 11 MMOL/L (8-16); BLOOD UREA NITROGEN 14 mg/dL (7-18); CALCIUM 7.7 mg/dL (8.5-10.1); CHLORIDE 105 mmol/L (98-107); CO2 21 mmol/L (21-32); CREATININE 1.5 mg/dL (0.55-1.3); GLUCOSE,RANDOM 209 mg/dL (74-106); POTASSIUM 4.1 mmol/L (3.5-5.1); SODIUM 137 mmol/L (136-145)
[2019-02-02] MEDS: ATORVASTATIN CA 40 MG TABLET (FP) PO SCH (22:22)
[2019-02-03] MEDS: CEFAZOLIN 1 GM/D5W 1 GM/50 ML BAG IVPB SCH ×2 (01:24→10:07)
[2019-02-03] MEDS: SIMETHICONE 80 MG TAB.CHEW (FP) PO PRN ×3 (01:32→13:38)
[2019-02-03] MEDS: ACETAMINOPHEN 325 MG TABLET (FP) PO PRN ×3 (01:34→13:38)
--- NOTE | 2019-02-03 08:01 | PN ---
Progress Note (short form) - Note Progress Note: POD 1, s/p Robotic Laparoscopic Total Hysterectomy. Bilateral Salpingectomy Pt seen and examined this AM. Reports feeling well. Pain is controlled with pain meds. Tolerating clears, no flatus yet. Has not been oob. Zamarripa in place upon initial examination. Denies cp/sob, n/v/d, calf pain/edema. Vital Signs Temp 98.4 F 02/03/19 09:25 Pulse 77 02/03/19 09:25 Resp 18 02/03/19 09:25 BP 125/65 02/03/19 09:25 Pulse Ox 100 02/02/19 21:00 Intake & Output 02/02/19 02/02/19 02/03/19 11:59 23:59 11:59 Intake Total 5399 519 6668 Output Total 200 750 950 Balance 1600 -50 150 Intake: IV 1800 500 800 Lactated Ringers Solution 500 800 1,000 ml @ 75 mls/hr IV ASDIR ARISTEO Rx#:[id number] IVPB 50 300 Oral 150 Output: Urine 175 750 950 Zamarripa 400 950 Estimated Blood Loss 25 Other: Voiding Method Indwelling Catheter CBC, BMP 02/03/19 07:00 02/03/19 07:00 Gen: awake, alert, nad Resp: unlabored on RA, cta b/l anteriorly CV: rrr, s1s2 Abdomen: soft, minimally distended, +ttp around incisions, band-aids c/d/i. Zamarripa with orange tinged urine, no bleeding noted. Ext: no edema, no calf ttp, scds in place and on. A/P: 48 y/o F w/ PMHx hld Chronic Pelvic Pain/Leiomyomatous Uterus, now POD 1, s /p Robotic Laparoscopic Total Hysterectomy, Bilateral Salpingectomy. Pt noted to have elevated creatinine on post op labs (1.5), UOP 750ml overnight with additional 200ml this morning. On preop labs pts creatinine was 1.1 (). AM labs with creatinine 1.1. -Renal u/s ordered for this AM due to elevated creatinine -F/U Urology consult -Continue pain control as ordered -Advance diet as tolerated -Monitor I&Os -Bowel regimen -DVT prophylaxis -OOB ad hao -Likely d/c this afternoon pending renal u/s d/w attending Dr Salazar Pt aware of plan per discussion w/ attending and agrees
[2019-02-03 08:12] LABS: HEMATOCRIT 26.1 % (32.4-45.2); HEMOGLOBIN 8.4 GM/dL (10.7-15.3); MCH 24.5 pg (25.7-33.7); MCHC 32.2 g/dl (32.0-36.0); MEAN CELL VOLUME 76.3 fl (80-96); MEAN PLT VOLUME 8.5 fl (7.5-11.1); PLATELET COUNT 274 K/MM3 (134-434); RBC 3.42 M/mm3 (3.60-5.2); RDW 18.9 % (11.6-15.6); WHITE BLOOD COUNT 12.5 K/mm3 (4.0-10.0)
--- NOTE | 2019-02-03 08:23 | DS ---
Physical Exam: SUBJECTIVE: Patient seen and examined. Pt seen and examined this AM. Reports feeling well. Pain is controlled with pain meds. Tolerating clears, no flatus yet. Has not been oob. Zamarripa in place upon initial examination. Denies cp/sob, n /v/d, calf pain/edema. OBJECTIVE: Vital Signs Temperature 98.1 F 02/03/19 05:55 Pulse Rate 82 02/03/19 05:55 Respiratory Rate 18 02/03/19 05:55 Blood Pressure 129/74 02/03/19 05:55 O2 Sat by Pulse Oximetry (%) 100 02/02/19 21:00 PHYSICAL EXAM Gen: awake, alert, nad Resp: unlabored on RA, cta b/l anteriorly CV: rrr, s1s2 Abdomen: soft, minimally distended, +ttp around incisions, band-aids c/d/i. Zamarripa with orange tinged urine, no bleeding noted. Ext: no edema, no calf ttp, scds in place and on. LABS CBC,CMP WBC 15.6 K/mm3 (4.0-10.0) H 02/02/19 18:00 RBC 3.93 M/mm3 (3.60-5.2) 02/02/19 18:00 Hgb 9.7 GM/dL (10.7-15.3) L 02/02/19 18:00 Hct 30.5 % (32.4-45.2) L 02/02/19 18:00 MCV 77.8 fl (80-96) L 02/02/19 18:00 MCH 24.6 pg (25.7-33.7) L 02/02/19 18:00 MCHC 31.6 g/dl (32.0-36.0) L 02/02/19 18:00 RDW 18.6 % (11.6-15.6) H 02/02/19 18:00 Plt Count 301 K/MM3 (134-434) 02/02/19 18:00 MPV 8.5 fl (7.5-11.1) 02/02/19 18:00 Sodium 137 mmol/L (136-145) 02/02/19 18:00 Potassium 4.1 mmol/L (3.5-5.1) 02/02/19 18:00 Chloride 105 mmol/L (98-107) 02/02/19 18:00 Carbon Dioxide 21 mmol/L (21-32) 02/02/19 18:00 Anion Gap 11 MMOL/L (8-16) 02/02/19 18:00 BUN 14 mg/dL (7-18) 02/02/19 18:00 Creatinine 1.5 mg/dL (0.55-1.3) H 02/02/19 18:00 Creat Clearance w eGFR 37.22 (>60) 02/02/19 18:00 Random Glucose 209 mg/dL (74-106) H 02/02/19 18:00 Calcium 7.7 mg/dL (8.5-10.1) L 02/02/19 18:00 HOSPITAL COURSE: Date of Admission:02/02/19 Date of Discharge: 02/03/19 The patient was admitted to the Med-Surg Unit after an elective repair of their chronic pelvic pain and leiomyomatous uterus, Now, s/p Robotic Laparoscopic Total Hysterectomy, Bilateral Salpingectomy. Pain control was achieved with narcotic and non-narcotic pain management control was achieved with an oral regimen. Renee-operative IV ABX were administered. DVT prophylaxis was achieved with SCDs, Lovenox and early ambulation. Patient was noted to have an elevated creatinine of 1.5 on post op labs (preoperative testing revealed a creatinine of 1.1). Patient had adequate urine output overnight and morning labs revealed a creatinine of 1.1. Renal ultrasound was obtained which revealed marked left- sided hydronephrosis consistent with long-standing obstruction. Urology consult was placed. CT scan was obtained per Urologists request to delineate patients anatomy. Patient is planned for outpatient Urology follow up with Dr Escobar. All narcotic were checked with [facility] prior to escribe. The discharge instructions and an oral pain management plan were reviewed with the patient. All questions answered. Above plan discussed with Dr. Salazar and agreed. Minutes to complete discharge: 20 Visit type - Case Type Case Type: Scheduled - Emergency Emergency Visit: No - New patient This patient is new to me today: Yes Date on this admission: 02/05/19 - Critical Care Critical Care patient: No
[2019-02-03 08:31] LABS: ANION GAP 4 MMOL/L (8-16); BLOOD UREA NITROGEN 14 mg/dL (7-18); CHLORIDE 107 mmol/L (98-107); CO2 26 mmol/L (21-32); CREATININE 1.1 mg/dL (0.55-1.3); GLUCOSE,RANDOM 88 mg/dL (74-106); SODIUM 138 mmol/L (136-145)
--- NOTE | 2019-02-03 09:03 | PN ---
Progress Note (SOAP) - Subjective Chief Complaint: Saw patient at bedside this morm eager to go home no flatus castellanos draining urine - Current Medications Current Medications: Active Medications Acetaminophen (Tylenol -) 650 mg PO Q4H PRN PRN Reason: FEVER Last Admin: 02/03/19 08:03 Dose: 650 mg Atorvastatin Calcium (Lipitor -) 40 mg PO HS ARISTEO Last Admin: 02/02/19 22:22 Dose: Not Given Bisacodyl (Dulcolax -) 10 mg PO ONCE PRN PRN Reason: CONSTIPATION Docusate Sodium (Colace -) 100 mg PO TID PRN PRN Reason: CONSTIPATION Enoxaparin Sodium (Lovenox -) 40 mg SQ DAILY ARISTEO Fentanyl (Sublimaze Injection -) 50 mcg IVPUSH [id number] PRN PRN Reason: PAIN-PACU ORDER X 4 DOSES ONLY Last Admin: 02/02/19 12:29 Dose: 50 mcg Lactated Ringer's (Lactated Ringers Solution) 1,000 mls @ 75 mls/hr IV ASDIR ARISTEO Cefazolin Sodium (Ancef 1 Gm Premixed Ivpb -) 1 gm in 50 mls @ 100 mls/hr IVPB Q8H-IV ARISTEO Stop: 02/03/19 17:59 Last Admin: 02/03/19 01:24 Dose: 100 mls/hr Non-Formulary Medication ([place]-3 Fatty Acids [Fish Oil]) 300 mg PO DAILY [facility] Ondansetron HCl (Zofran Injection) 4 mg IVPUSH Q6H PRN PRN Reason: NAUSEA AND/OR VOMITING Ondansetron HCl (Zofran Injection) 4 mg IVPUSH Q4H PRN PRN Reason: NAUSEA AND/OR VOMITING Oxycodone HCl (Roxicodone -) 5 mg PO Q4H PRN PRN Reason: PAIN LEVEL 1-5 Oxycodone HCl (Roxicodone -) 10 mg PO Q4H PRN PRN Reason: PAIN LEVEL 6-10 Simethicone (Mylicon -) 80 mg PO Q4H PRN PRN Reason: GAS Last Admin: 02/03/19 08:01 Dose: 80 mg - Objective Vital Signs: Vital Signs Temperature 98.1 F 02/03/19 05:55 Pulse Rate 82 02/03/19 05:55 Respiratory Rate 18 02/03/19 05:55 Blood Pressure 129/74 02/03/19 05:55 O2 Sat by Pulse Oximetry (%) 100 02/02/19 21:00 Constitutional: Yes: Well Nourished, No Distress Gastrointestinal: Yes: WNL, Soft Musculoskeletal: Yes: WNL Extremities: Yes: WNL Peripheral Pulses WNL: No Wound/Incision: Yes: Dressing Dry and Intact Neurological: Yes: WNL, Alert, Oriented Labs Lab Results: CBC, BMP 02/03/19 07:00 02/03/19 07:00 Problem List - Problems (1) Elevated serum creatinine Code(s): R79.89 - OTHER SPECIFIED ABNORMAL FINDINGS OF BLOOD CHEMISTRY Assessment/Plan Sp Laparoscopic robotic total hysterrectomy POD1 ellevated creatinine last night Plan Keep castellanos catheter kidney ultrasound consult urology
[2019-02-03 09:26] VITALS: BP 125/65; PULSE 77; TEMP 98.4
[2019-02-03] MEDS ORDERED: ENOXAPARIN NA (PORCINE) 30 MG/0.3 ML DISP.SYRIN SQ SCH (10:00)
[2019-02-03] MEDS ORDERED: PATIENT'S OWN MEDICATION (NON-FORMULARY) (Omega-3 Fatty Acids [Fish Oil] 300 MG) PO SCH (10:00)
[2019-02-03] MEDS ORDERED: ENOXAPARIN NA (PORCINE) 40 MG/0.4 ML DISP.SYRIN SQ SCH (10:00)
[2019-02-03] MEDS: ATORVASTATIN CA 40 MG TABLET (FP) PO SCH (11:10)
--- NOTE | 2019-02-03 13:03 | DS ---
Physical Exam: SUBJECTIVE: Patient seen and examined OBJECTIVE: Vital Signs Temperature 98.4 F 02/03/19 09:25 Pulse Rate 77 02/03/19 09:25 Respiratory Rate 18 02/03/19 09:25 Blood Pressure 125/65 02/03/19 09:25 O2 Sat by Pulse Oximetry (%) 100 02/02/19 21:00 PHYSICAL EXAM GENERAL: The patient is awake, alert, and fully oriented, in no acute distress. HEAD: Normal with no signs of trauma. EYES: PERRL, extraocular movements intact, sclera anicteric, conjunctiva clear. ENT: Ears normal, nares patent, oropharynx clear without exudates, moist mucous membranes. NECK: Trachea midline, full range of motion, supple. LUNGS: Breath sounds equal, clear to auscultation bilaterally, no wheezes, no crackles, no accessory muscle use. HEART: Regular rate and rhythm, S1, S2 without murmur, rub or gallop. ABDOMEN: Soft, nontender, nondistended, normoactive bowel sounds, no guarding, no rebound, no hepatosplenomegaly, no masses. EXTREMITIES: 2+ pulses, warm, well-perfused, no edema. NEUROLOGICAL: Cranial nerves II through XII grossly intact. Normal speech, gait not observed. PSYCH: Normal mood, normal affect. SKIN: Warm, dry, normal turgor, no rashes or lesions noted. LABS CBC,CMP WBC 12.5 K/mm3 (4.0-10.0) H 02/03/19 07:00 RBC 3.42 M/mm3 (3.60-5.2) L 02/03/19 07:00 Hgb 8.4 GM/dL (10.7-15.3) L 02/03/19 07:00 Hct 26.1 % (32.4-45.2) L 02/03/19 07:00 MCV 76.3 fl (80-96) L 02/03/19 07:00 MCH 24.5 pg (25.7-33.7) L 02/03/19 07:00 MCHC 32.2 g/dl (32.0-36.0) 02/03/19 07:00 RDW 18.9 % (11.6-15.6) H 02/03/19 07:00 Plt Count 274 K/MM3 (134-434) 02/03/19 07:00 MPV 8.5 fl (7.5-11.1) 02/03/19 07:00 Sodium 138 mmol/L (136-145) 02/03/19 07:00 Potassium 4.0 mmol/L (3.5-5.1) 02/03/19 07:00 Chloride 107 mmol/L (98-107) 02/03/19 07:00 Carbon Dioxide 26 mmol/L (21-32) 02/03/19 07:00 Anion Gap 4 MMOL/L (8-16) L 02/03/19 07:00 BUN 14 mg/dL (7-18) 02/03/19 07:00 Creatinine 1.1 mg/dL (0.55-1.3) 02/03/19 07:00 Creat Clearance w eGFR 53.24 (>60) 02/03/19 07:00 Random Glucose 88 mg/dL (74-106) 02/03/19 07:00 Calcium 8.0 mg/dL (8.5-10.1) L 02/03/19 07:00 HOSPITAL COURSE: Date of Admission:02/02/19 Date of Discharge: 02/03/19 The patient was admitted to the Med-Surg Unit after an elective repair of their (problem). Now, s/p ( procedure ). The day of surgery, the patient ambulated the hallways with assistance. Narcotic and non-narcotic pain management control was achieved with an oral and IV approach. POD #1, the surgical drain was removed fully intact and without incident. An xray was obtained and confirmed hardware placement at (level of ), no fractures or dislocations. Renee-operative IV ABX were administered. DVT prophylaxis was achieved with SCDs and early ambulation. The patient ambulated with Physical Therapy and no services were recommended upon discharge. Narcotic scripts and or muscle relaxants were checked with [facility] prior to escibe. The discharge instructions and an oral pain management plan were reviewed with the patient. All questions answered. Above plan discussed with Dr. Zambrano and agreed.
--- NOTE | 2019-02-03 13:28 | CON.GU ---
Consult Consult Specialty:: Referred by:: Marie Reason for Consultation:: hydronephrosis - History of Present Illness Chief Complaint: hydronephrosis History of Present Illness: patient is a 48 year old woman POD #1 from hysterectomy for benign disease. It was uneventful however she had a transient increase in her creatinine post op which has resolved. She haed an US which showed normal right kidney but marked left hydro with thin parenchyma consistent with long standing obstruction. She reports that two years ago she had bilateral lithotripsies at [place]. She is asymptomatic from this finding - History Source History Provided By: Patient Limitations to Obtaining History: No Limitations - Past Medical History Renal/: Yes: Renal Calculi, Other ...LMP: 01/24/19 - Alcohol/Substance Use Hx Alcohol Use: Yes (SOCIALLY) - Smoking History Smoking history: Current some day smoker Have you smoked in the past 12 months: Yes Aproximately how many cigarettes per day: 1 Home Medications - Allergies Allergies/Adverse Reactions: Allergies Allergy/AdvReac Type Severity Reaction Status Date / Time No Known Allergies Allergy Verified 02/02/19 06:38 - Home Medications Home Medications: Ambulatory Orders Acetaminophen [Tylenol] 650 mg PO PRN PRN 05/28/17 [place]-3 Fatty Acids [Fish Oil] 300 mg PO DAILY 05/28/17 Atorvastatin Ca [Lipitor] 40 mg PO DAILY 01/27/19 Docusate Sodium [Dulcolax Stool Softener] 100 mg PO BID PRN 30 Days #28 capsule 02/03/19 oxyCODONE HCL [Roxicodone -] 5 mg PO Q6H PRN 7 Days #20 tablet MDD 5 02/03/19 Review of Systems - Review of Systems Genitourinary: reports: No Symptoms Physical Exam- Vital Signs: Vital Signs Temperature 98.4 F 02/03/19 09:25 Pulse Rate 77 02/03/19 09:25 Respiratory Rate 18 02/03/19 09:25 Blood Pressure 125/65 02/03/19 09:25 O2 Sat by Pulse Oximetry (%) 100 02/02/19 21:00 Renal/: Yes: Zamarripa Present. No: Bladder Distention, CVA Tenderness - Left, CVA Tenderness - Right, Hematuria Labs: CBC, BMP 02/03/19 07:00 02/03/19 07:00 Imaging - Results Ultrasound: Report Reviewed Problem List - Problems (1) Hydronephrosis Assessment/Plan: CT scan to evaluate anatomy. renal scan as outpatient to assess renal function Code(s): N13.30 - UNSPECIFIED HYDRONEPHROSIS
--- NOTE | 2019-02-04 16:13 | PATH ---
Surgical Pathology Report Patient Name: CARLOS CORTES [facility]. Rec. #: [id number] /Age/Gender: 1970 (Age: 48) / F Account: [id number] Location: AMBULATORY SURG Taken: 02/02/2019 Received: 02/02/2019 Reported: 02/04/2019 Physicians: Nelida Salazar M.D. Specimen(s) Received A: UTERUS AND CERVIX B: FALLOPIAN TUBE RIGHT C: FALLOPIAN TUBE LEFT Clinical History Leiomyoma of uterus Final Diagnosis A. UTERUS AND CERVIX, HYSTERECTOMY: ADENOMYOSIS. PROLIFERATIVE TYPE ENDOMETRIUM. CERVIX WITH SQUAMOUS METAPLASIA. B. RIGHT FALLOPIAN TUBE, RESECTION: PORTION OF FALLOPIAN TUBE WITH NO DIAGNOSTIC ABNORMALITIES. C. LEFT FALLOPIAN TUBE, RESECTION: PORTION OF FALLOPIAN TUBE WITH NO DIAGNOSTIC ABNORMALITIES. Electronically Signed Tiago tSein M.D. Gross Description A. Received in formalin labeled "uterus and cervix," is a 129 g uterus with an attached cervix. No tubes or ovaries present. The specimen measures 8.4 cm from superior to inferior, 4.5 cm from anterior to posterior, and 7.5 cm from left to right. The serosa is howe-pink and smooth. The attached cervix measures 3 cm in length and averages 3.1 cm in diameter. The ectocervix is howe-pink, smooth and glistening. The endocervix is unremarkable. The endometrial cavity measures 4 cm in length and averages 4 cm from cornu to cornu. The endometrium is howe-red and measures up to 0.1 cm in thickness. The myometrium showing focI thickening (2.1cm in greatest thickness) with nodular change. No distinct mass is seenRepresentative sections are submitted in 9 cassettes as follows: 1-2: anterior cervix; 3: posterior cervix 4-6: anterior thickened myometrium; 5-8-[id number] endomyometrium. B. Received fresh labelled "right fallopian tube" is a 3.5 cm long by 0.5 cm in diameter portion of tissue consistent with a portion of fallopian tube with a fimbriated end. Sectioned and in store representative sections submitted in two cassettes. C. Received fresh labelled "left fallopian tube" is a 2.5 cm long by 0.6 cm in diameter portion of tissue consistent with a portion of fallopian tube with a fimbriated end. Sectioned and in store representative sections submitted in two cassettes. _ ISAC/02/03/2019 adriana/02/03/2019
== END 2019-02-03 16:00 | disposition home or self-care (01) ==
LOC: JASUSAT 05:35 → J3W 13:18 → JASUSAT 02-03 16:00
PROVIDERS: ATTEND Obstetrics & Gynecology
PROC: 0UT78ZZ Resection of Bilateral Fallopian Tubes, Via Natural or Artificial Opening Endoscopic (ICD-10-PCS; 2019-02-02)
PROC: 8E0W8CZ Robotic Assisted Procedure of Trunk Region, Via Natural or Artificial Opening Endoscopic (ICD-10-PCS; principal; 2019-02-02 08:00)
PROC: 0UT98ZZ Resection of Uterus, Via Natural or Artificial Opening Endoscopic (ICD-10-PCS; 2019-02-02 08:00)
DX: D25.9 Leiomyoma of uterus, unspecified (principal); R10.2 Pelvic and perineal pain; N13.30 Unspecified hydronephrosis
CPT/HCPCS: 58571; S2900; 36415; 74176-TC; 76775-TC; 80048; 84703; 85027; 88302-TC; 88307-TC; 94010; 94760; J0131